=== PATIENT | female | born 1940 | race Caucasian/White ===

== ENCOUNTER 2017-07-28 09:44 | Inpatient (IN) | payer MEDICARE ==
[~2017-07-28] VITALS: Ht 157.5 cm; Wt 83.1 kg
[~2017-07-28 09:44] MED LIST: AMLO5TAB4 PO; CELE100C PO; CEPH-264 PO; CYCL-331 PO; SIMV20TA3 PO; WARF3TAB54 PO
--- NOTE | 2017-07-28 10:31 | RAD ---
Examination: 3 views of the left wrist and left elbow History: History of fall Comparison: None available Findings: The alignment of the carpal bones grossly appears unremarkable. Examination limited due to osseous demineralization. Moderate joint space loss identified in the first metacarpal joint likely secondary to degeneration. Calcification identified in the region of the triangular fibrocartilage likely chondrocalcinosis. Cystic changes of the triquetrum identified. The alignment of the elbow joint grossly appears unremarkable. There is minimal step-off of the radius head identified likely nondisplaced fracture of the radius head with joint effusion identified in the elbow joint with elevation of the anterior fat pad. Impression: 1. Nondisplaced fracture radial head. 2. Elbow joint effusion. 3. Chondrocalcinosis triangular fibrocartilage. 4. Moderate degenerative changes first metacarpal joint.
[2017-07-28] MEDS: BACITRACIN ZINC TOPICAL OINT PACKET. TP SCH (10:36)
--- NOTE | 2017-07-28 10:42 | RAD ---
Examination: CT of the chest abdomen pelvis without contrast History: History of fall, left flank pain per of comparison: None available Technique: Axial CT images of the chest abdomen pelvis were performed without contrast. Coronal and sagittal reformats are performed PQRS Compliance Statement: One or more of the following individualized dose reduction techniques were utilized for this examination: 1. Automated exposure control 2. Adjustment of the mA and/or kV according to patient size 3. Use of iterative reconstruction technique Findings: Moderately enlarged left lobe of the thyroid gland with multiple hypodense nodules identified in the left lobe of the thyroid gland with the largest measuring 3.1 cm. The central airways are patent. The heart size grossly appears unremarkable. Mitral valve calcifications. Coronary artery calcifications identified. No evidence of pericardial effusion. Small hiatal hernia. Minimal left lung base atelectasis or no evidence of pleural effusion or pneumothorax. There is minimal displaced fracture of the lateral left sixth rib, nondisplaced fracture of the anterolateral left seventh, eighth ribs. The evaluation of the solid organs of the abdomen is limited due to lack of IV contrast. The visualized noncontrasted liver, spleen, adrenals grossly appears unremarkable. The gallbladder is not identified. Stomach is mildly distended. The visualized pancreas grossly appears unremarkable. The small bowel is nondilated. Feces and gas noted in the colon. No significant free fluid identified in the pelvis. Few sigmoid colon diverticulosis. No evidence of hydronephrosis. There is an exophytic density identified in the right kidney measuring 1.4 cm in the superior pole of the right kidney and measuring 3 Hounsfield units could be a cyst or cystic lesion. There is a 2 cm cystic density identified in the inferior right kidney could be a cyst or cystic lesion. Mild aortic atherosclerosis. Urinary bladder is mildly distended. Moderate degenerative changes identified in the visualized thoracolumbar spine. Impression: 1. Mild displaced fracture of the lateral left sixth rib. Nondisplaced fractures of the anterolateral left seventh, eighth ribs. 2. Coronary artery calcifications. 3. Multinodular appearance of the left lobe of thyroid gland with the largest nodule measuring 3 cm. Follow-up nonemergent ultrasound thyroid can be considered. 4. Sigmoid colon diverticulosis. 5. Right renal cysts or cystic lesions.
--- NOTE | 2017-07-28 10:47 | PHYS DOC ---
Past History Past Medical History: High Cholesterol, Hypertension Past Surgical History: Appendectomy, Cholecystectomy, Hysterectomy, Knee Replacement, Other Additional Past Surgical Histo: multiple surgeries on her knee with knee replacement, upper right limb wris Smoking: Non-smoker Alcohol Use: None Drug Use: None Adult General Chief Complaint Chief Complaint: MECHANICAL FALL HPI HPI Patient is a pleasant 76-year-old female with a history of hypertension, hyperlipidemia and multiple orthopedic surgeries in the past who presents with a sudden fall at home. Patient lives in a [place] rise facility apartment complex by herself she has a history of falls from standing today while walking through her kitchen actually caught her foot on the threshold of the floor falling forward onto her knees risks and left flank. Her main complaint right now is left flank pain over the lower rib cage and at the elbow and wrist. This pain is dull and achy worse with direct pressure over the rib cage and with breathing. Patient denies any abdominal pain, chest pain, focal neurologic deficits before or after the fall. She was able to crawl on the ground across to the phone to call EMS for transfer to the ER. She denies any deformity to her wrists bilaterally do not some tingling. Patient is oriented to physical therapy for chronic leg shortening secondary to multiple surgeries on the right leg. Patient notes that her knees although uncomfortable did not sustain any significant injury the bruising on her legs is from crawling on the ground. She is on 0.5 mg of by mouth Coumadin daily that she's been taking for 27 years second to her upper quadrant with state following surgeries. She denies any change in medications, denies any head or neck trauma or pain. Patient's only complaint is abdominal pain on the left flank without shortness of breath. Review of Systems Review of Systems Constitutional: Denies fever or chills [] Eyes: Denies change in visual acuity, redness, or eye pain [] HENT: Denies nasal congestion or sore throat [] Respiratory: Denies cough or shortness of breath [] Cardiovascular: No additional information not addressed in HPI [] GI: Denies abdominal pain, nausea, vomiting, bloody stools or diarrhea [] : Denies dysuria or hematuria [] Musculoskeletal: Denies back pain or her main complaint is left wrist pain and left elbow pain and left lower rib pain Integument: Denies rash or skin lesions she has multiple areas of contusions and bruises in various states of healing and a large skin tear over the right elbow Neurologic: Denies headache, focal weakness or sensory changes [] Current Medications Current Medications Current Medications Medications (Trade) Dose Ordered Sig/Angel Start Time Stop Time Status Last Admin Dose Admin Bacitracin 1 pkt DAILY 07/28/17 10:45 07/28/17 10:36 1 PKT Allergies Allergies Allergies Coded Allergies Type Severity Reaction Last Updated Verified No Known Drug Allergies 11/02/15 No Physical Exam Physical Exam Vital signs recorded on the chart patient noted to be hypertensive otherwise normal. Constitutional: Well developed, well nourished, no acute distress, non-toxic appearance patient resting quietly and comfortably on the cot after receiving IV Ativan prior to arrival. HENT: Normocephalic, atraumatic, bilateral external ears normal, oropharynx moist, no oral exudates, nose normal. [] Eyes: PERRLA, EOMI, conjunctiva normal, no discharge. [] Neck: Normal range of motion, no tenderness, supple, no stridor. [] Cardiovascular:Heart rate regular rhythm, no murmur [] Lungs & Thorax: Bilateral breath sounds clear to auscultation [] Abdomen: Bowel sounds normal, patient has tenderness to palpation of the left lower ribs and the flank with no obvious Barber Palumbo sign or soft tissue swelling to the abdominal wall. She has a well-healed scar over the mid abdomen no evidence of distention, guarding rebound or organomegaly. Skin: Warm, dry, no erythema, no rash. She has multiple areas of bruising in her lower and upper limbs. They're in various states of healing but there is no obvious signs of laceration. Patient is a very large area of skin tear over the lateral aspect of the right forearm measuring 12 cm x 2 cm in length and width no active bleeding is noted patient's wound is uncovered with bacitracin ointment and a nonadherent gauze. Patient has no tenderness in the elbow joint itself with full range of motion. Back: No tenderness, Extremities: He has significant decreased range of motion in the right leg which is chronic for her given her prior surgeries. Patient has a large 3 cm circular contusion to both patellas bilaterally with no evidence of pain with axial loading no bony tenderness to palpation over the distal femur laterally. Patient has marked tenderness to palpation over the radial head on the left and tenderness to palpation over the distal ulna and distal radius with no obvious deformity or soft tissue swelling. Patient has brisk capillary refill +2 in the distal actually on the left and right with great pulses at the radial and ulnar arteries. Neurologic: Alert and oriented X 3, normal motor function, normal sensory function, no focal deficits noted. [] Psychologic: Affect normal, judgement normal, mood normal. [] Current Patient Data Vital Signs Vital Signs Date Time Temp Pulse Resp B/P (MAP) Pulse Ox O2 Delivery O2 Flow Rate FiO2 07/28/17 09:54 98.7 93 16 96 Room Air EKG EKG [] Radiology/Procedures Radiology/Procedures [] [place] [address] IMAGING REPORT Signed PATIENT: JANETT MCCANN ACCOUNT: [id number] : 1940 LOCATION: ER AGE: 76 SEX: F EXAM STATUS: REG ER ORD. PHYSICIAN: NATY MARIN MD REASON: flank injury PROCEDURE: CT CHEST ABDOMEN PELVIS WO Examination: CT of the chest abdomen pelvis without contrast History: History of fall, left flank pain per of comparison: None available Technique: Axial CT images of the chest abdomen pelvis were performed without contrast. Coronal and sagittal reformats are performed PQRS Compliance Statement: One or more of the following individualized dose reduction techniques were utilized for this examination: 1. Automated exposure control 2. Adjustment of the mA and/or kV according to patient size 3. Use of iterative reconstruction technique Findings: Moderately enlarged left lobe of the thyroid gland with multiple hypodense nodules identified in the left lobe of the thyroid gland with the largest measuring 3.1 cm. The central airways are patent. The heart size grossly appears unremarkable. Mitral valve calcifications. Coronary artery calcifications identified. No evidence of pericardial effusion. Small hiatal hernia. Minimal left lung base atelectasis or no evidence of pleural effusion or pneumothorax. There is minimal displaced fracture of the lateral left sixth rib, nondisplaced fracture of the anterolateral left seventh, eighth ribs. The evaluation of the solid organs of the abdomen is limited due to lack of IV contrast. The visualized noncontrasted liver, spleen, adrenals grossly appears unremarkable. The gallbladder is not identified. Stomach is mildly distended. The visualized pancreas grossly appears unremarkable. The small bowel is nondilated. Feces and gas noted in the colon. No significant free fluid identified in the pelvis. Few sigmoid colon diverticulosis. No evidence of hydronephrosis. There is an exophytic density identified in the right kidney measuring 1.4 cm in the superior pole of the right kidney and measuring 3 Hounsfield units could be a cyst or cystic lesion. There is a 2 cm cystic density identified in the inferior right kidney could be a cyst or cystic lesion. Mild aortic atherosclerosis. Urinary bladder is mildly distended. Moderate degenerative changes identified in the visualized thoracolumbar spine. Impression: 1. Mild displaced fracture of the lateral left sixth rib. Nondisplaced fractures of the anterolateral left seventh, eighth ribs. 2. Coronary artery calcifications. 3. Multinodular appearance of the left lobe of thyroid gland with the largest nodule measuring 3 cm. Follow-up nonemergent ultrasound thyroid can be considered. 4. Sigmoid colon diverticulosis. 5. Right renal cysts or cystic lesions. DICTATED AND SIGNED BY: BRAYAN WELCH MD DATE: 07/28/171029 CC: NATY MARIN MD; PCP,NO ~ [place] [id number] IMAGING REPORT Signed PATIENT: JANETT MCCANN ACCOUNT: [id number] : 1940 LOCATION: ER AGE: 76 SEX: F EXAM [id number] STATUS: REG ER ORD. PHYSICIAN: NATY MARIN MD REASON: fall PROCEDURE: ELBOW LEFT 3V; WRIST 3V LEFT Examination: 3 views of the left wrist and left elbow History: History of fall Comparison: None available Findings: The alignment of the carpal bones grossly appears unremarkable. Examination limited due to osseous demineralization. Moderate joint space loss identified in the first metacarpal joint likely secondary to degeneration. Calcification identified in the region of the triangular fibrocartilage likely chondrocalcinosis. Cystic changes of the triquetrum identified. The alignment of the elbow joint grossly appears unremarkable. There is minimal step-off of the radius head identified likely nondisplaced fracture of the radius head with joint effusion identified in the elbow joint with elevation of the anterior fat pad. Impression: 1. Nondisplaced fracture radial head. 2. Elbow joint effusion. 3. Chondrocalcinosis triangular fibrocartilage. 4. Moderate degenerative changes first metacarpal joint. DICTATED AND SIGNED BY: BRAYAN WELCH MD DATE: 07/28/17 1025 CC: NATY MARIN MD; PCP,KATHERINE ~ Course & Med Decision Making Course & Med Decision Making Pertinent Labs and Imaging studies reviewed. (See chart for details) Patient's CT abdomen and pelvis demonstrates multiple lower rib fractures on the left without evidence of spleen injury. Patient also suffered from a left radial head fracture. Given patient's debility and the fact she lives on her own I will admit patient to the hospital for pain management and very close follow-up with her primary care doctor along with developing a long-term treatment plan for continued weakness associated with her prior surgeries. This point patient's pain is well-controlled she is having an IV placed she will have a PT/INR drawn and tested for abnormal thinness. Ordnance Engineer note: change consultant Dr. Mejia Ordnance Engineer called at of the service Consult called back at Discussed the case I presented and they agreed with admission. Time of acceptance [] Dragon Disclaimer Dragon Disclaimer This chart was dictated in whole or in part using Voice Recognition software in a busy, high-work load, and often noisy Emergency Department environment. It may contain unintended and wholly unrecognized errors or omissions. Departure Departure: Referrals: PCP,KATHERINE (PCP) NATY MARIN MD Jul 28, 2017 10:47
[2017-07-28] MEDS ORDERED: MORPHINE SULFATE 2 MG/ML DISP.SYRIN. IV ONE (11:15)
[2017-07-28] MEDS ORDERED: ONDANSETRON PF 4 MG/2 ML VIAL. IV PRN (11:15)
[2017-07-28] MEDS ORDERED: 0.9 % SODIUM CHLORIDE 10 ML DISP.SYRIN. IV PRN (11:15)
[2017-07-28 11:50] LABS: BASO % 0 % (0-3); EOS # 0.1 x10^3/uL (0.0-0.7); EOS % 1 % (0-3); HEMATOCRIT 38.5 % (36.0-47.0); HEMOGLOBIN 12.6 g/dL (12.0-15.5); LYMPH # 1.3 x10^3/uL (1.0-4.8); LYMPH % 12 % (24-48); MEAN CORPUSCULAR HEMOGLOBIN 30 pg (25-35); MEAN CORPUSCULAR HGB CONC 33 g/dL (31-37); MEAN CORPUSCULAR VOLUME 91 fL (79-100); MONO # 0.9 x10^3/uL (0.0-1.1); MONO % 8 % (0-9); NEUT # 8.5 x10^3uL (1.8-7.7); NEUT % 79 % (31-73); PLATELET COUNT 251 x10^3/uL (140-400); RED BLOOD COUNT 4.23 x10^6/uL (3.50-5.40); RED CELL DISTRIBUTION WIDTH 14.6 % (11.5-14.5); WHITE BLOOD COUNT 10.8 x10^3/uL (4.0-11.0)
[2017-07-28 11:52] LABS: CALCIUM 8.3 mg/dL (8.5-10.1); CREATININE 1.2 mg/dL (0.6-1.0); GFR 43.6; POTASSIUM 3.9 mmol/L (3.5-5.1)
[2017-07-28] MEDS ORDERED: MORPHINE SULFATE 2 MG/ML DISP.SYRIN. IV PRN (13:45)
--- NOTE | 2017-07-28 14:40 | NUR ---
The patient, JANETT MCCANN, 76 y/o, F admitted by ALEX SANCHEZ MD, was given written information regarding hospital policies, unit procedures and contact persons. Patient admitted to room 125 from the ED and arrived at approx. 1430 via EMS. Valuables were checked and left in room with patient. Vital signs assessed and patient oriented to the room.
[2017-07-28] MEDS: IV NORMAL SALINE 1,000ML 1,000 ML IV SCH ×2 (15:02→22:04)
[2017-07-28 15:03] VITALS: BP 221/76
--- NOTE | 2017-07-28 15:56 | EKG ---
[address] [address] Test Date: 2017-07-28 Test Time: 09:49:43 Pat Name: JANETT MCCANN Department: Room: 125 A Gender: F Network Announcer: : 1940 Requested By: NATY MARIN Order Number: [id number] Reading MD: Blayne Farias Measurements Intervals [place] Rate: 99 P: 4 WA: 160 QRS: -3 QRSD: 82 T: 22 QT: 340 QTc: 442 Interpretive Statements SINUS RHYTHM INFERIOR INFARCT Electronically Signed On 08-04-2017 8:16:41 CDT by Blayne Farias
[2017-07-28 16:10] VITALS: BP 145/74
[2017-07-28] MEDS ORDERED: HYDR12.58 PO (17:38)
[2017-07-28] MEDS ORDERED: ACET-704 PO (17:38)
[2017-07-28] MEDS ORDERED: WARF1TAB7 PO (17:38)
[2017-07-28] MEDS ORDERED: MULT-650 PO (17:38)
[2017-07-28] MEDS ORDERED: ASCO10002 PO (17:38)
[2017-07-28] MEDS ORDERED: NITR50CA PO (17:38)
[2017-07-28] MEDS ORDERED: OMEP20TA63 PO (17:38)
[2017-07-28] MEDS ORDERED: CELE-20 PO (17:38)
[2017-07-28] MEDS ORDERED: VALS320T9 PO (17:38)
[2017-07-28 18:36] VITALS: BP 137/88
[2017-07-28 19:39] LABS: ALBUMIN 3.1 g/dL (3.4-5.0); CREATININE 1.2 mg/dL (0.6-1.0); GFR 43.6; POTASSIUM 4.2 mmol/L (3.5-5.1); TOTAL BILIRUBIN 0.4 mg/dL (0.2-1.0); TOTAL PROTEIN 6.3 g/dL (6.4-8.2)
[2017-07-28] MEDS: oxyCODONE IR 5 MG TABLET PO PRN (20:29)
[2017-07-28] MEDS: SIMVASTATIN 20 MG TABLET PO SCH (20:29)
[2017-07-28 21:00] VITALS: BP 178/72
[2017-07-28] MEDS: MORPHINE SULFATE 2 MG/ML DISP.SYRIN. IV PRN (22:03)
[2017-07-28 22:21] VITALS: BP 160/74
[2017-07-29] VITALS (10 sets, daily range): BP systolic 163–192; BP diastolic 67–101
[2017-07-29] MEDS: MORPHINE SULFATE 2 MG/ML DISP.SYRIN. IV PRN ×6 (02:05→22:00)
[2017-07-29] MEDS: hydrALAZINE 20 MG/ML VIAL. IV PRN ×3 (05:53→20:03)
--- NOTE | 2017-07-29 06:05 | NUR ---
NURSING: PT UP FREQUENTLY TO URINATE THROUGH NOC. PT C/O INCREASED PAIN WHEN PERFORMING ADL'S SUCH TOILETING, ESPECIALLY AT LEFT UPPER RIBS AREA. PT RECEIVED PRN MORPHINE INDICATED AND REPOSITIONED IN BED FOR MAXIMUM COMFORT WITH PILLOW PLACED TO ABDOMEN FOR SPLINTING. BP SIGNIFICANTLY ELEVATED THIS AM AT 197/77, HR 85 BPM. PT GIVEN PRN HYDRALAZINE, WILL MONITOR FOR EFFECTIVENESS.
[2017-07-29 06:09] LABS: HEMATOCRIT 36.4 % (36.0-47.0); HEMOGLOBIN 12.2 g/dL (12.0-15.5); RED BLOOD COUNT 4.05 x10^6/uL (3.50-5.40); RED CELL DISTRIBUTION WIDTH 14.5 % (11.5-14.5); WHITE BLOOD COUNT 8.1 x10^3/uL (4.0-11.0)
[2017-07-29 06:26] LABS: ALBUMIN 2.9 g/dL (3.4-5.0); ALBUMIN/GLOBULIN RATIO 0.9 (1.0-1.7); CREATININE 1.2 mg/dL (0.6-1.0); GFR 43.6; POTASSIUM 4.3 mmol/L (3.5-5.1); TOTAL BILIRUBIN 0.7 mg/dL (0.2-1.0); TOTAL PROTEIN 6.1 g/dL (6.4-8.2)
[2017-07-29] MEDS: hydroCHLOROthiazide 12.5 MG CAPSULE PO SCH (08:49)
[2017-07-29] MEDS: MULTIVITAMIN with MINERAL TABLET. PO SCH (08:49)
[2017-07-29] MEDS: ASCORBIC ACID 500 MG TABLET PO SCH (08:49)
[2017-07-29] MEDS: PANTOPRAZOLE 40 MG TABLET. PO SCH (08:50)
[2017-07-29] MEDS: NITROFURANTOIN MONOHYD/M-CRYST 100 MG CAPSULE. PO SCH (08:51)
[2017-07-29] MEDS: LOSARTAN 50 MG TABLET. PO SCH (08:51)
[2017-07-29] MEDS: NYSTATIN TOPICAL POWDER 30GM BOTTLE. TP SCH ×2 (08:52→20:04)
[2017-07-29] MEDS ORDERED: METOPROLOL TART IMMED RELEASE 25 MG TABLET PO ONE (13:00)
[2017-07-29] MEDS ORDERED: METOPROLOL SUCC 24HR ER 25 MG TAB.ER.24H. PO ONE (13:00)
[2017-07-29] MEDS: LIDOCAINE (700MG/PATCH) PATCH. TD SCH (14:31)
--- NOTE | 2017-07-29 15:49 | RAD ---
CT of the head without contrast, 07/29/2017: History: Fall, patient anticoagulated There is mild cerebral atrophy. The ventricles are within normal limits in size. There is no shift of the midline structures. There is no evidence of acute intracranial hemorrhage or mass affect. Minimal deep white matter lucencies are noted compatible with chronic ischemic change. IMPRESSION: No acute intracranial abnormality is detected. PQRS Compliance Statement: One or more of the following individualized dose reduction techniques were utilized for this examination: 1. Automated exposure control 2. Adjustment of the mA and/or kV according to patient size 3. Use of iterative reconstruction technique
[2017-07-29] MEDS: BACITRACIN ZINC TOPICAL OINT PACKET. TP SCH (15:53)
--- NOTE | 2017-07-29 16:17 | NUR ---
Wound Care Wound care consult for large skin tears on R elbow. Hiwot RN in middle of picturing and measuring wound upon arrival of [facility]. Steri-strips placed over skin tears to secure. Recommended dressing: xeroform, coccyx foam and medigrip to secure dressing, change every 3 days. Discussed POC with ROS Mi and patient. Will continue to follow for possible changes in wound.
--- NOTE | 2017-07-29 16:25 | NUR ---
Nursing Note: Pt noted to have elevated blood pressures this shift. Hydralazine administered x1 with increase in BP noted after approx. 1 hr. Pt reported feeling light-headed, dizzy, and diaphoretic. Dr. Mejia notified and 1x dose of Metoprolol 25 mg ordered and administered. Pt reported feeling better following Metoprolol dose and lower BP noted and reported to Dr. Mejia.
--- NOTE | 2017-07-29 16:30 | NUR ---
Nursing Note: During transfer to wheelchair, pt hit her right elbow on metal corner of the wall. New skin tear noted above previous skin tear on right elbow. New skin tear measured, photographed, documented, and discussed with public address announcer. New dressing applied to new and old skin tears on right elbow. Continue to monitor.
--- NOTE | 2017-07-29 16:40 | HP ---
ADMIT DATE: 07/29/2017 HISTORY OF PRESENT ILLNESS: The patient is a 76-year-old female patient, who presented to the Emergency Room yesterday with a sudden fall at home. The patient lives [facility] [place] herself. She apparently tripped and fell from standing while walking to her kitchen as her foot was caught in threshold of the floor, falling forward onto her knees, breast, and left flank. Her main complaint was pain in her left flank area, the lower rib cage as well as her left elbow on rest. The pain is dull, aching, worse with direct pressure over the ribcage and also taking a deep breath and moving. She denied any abdominal pain. Denied any dizziness, lightheadedness. Denied any palpitation. Denied any loss of consciousness. She was apparently able to crawl on the ground across to the phone to call EMS for transfer to the Emergency Room. She denied any deformity to her wrist bilaterally. She has been getting physical therapy for chronic leg shortening secondary to multiple surgeries to her right leg. She did sustain multiple bruises on both knee joints. She is on Coumadin daily as she has been taking it for the last 27 years secondary to her multiple deep vein thrombosis. She was evaluated in the Emergency Room and imaging studies showed that she has nondisplaced fracture of the radial head, elbow joint effusion, chondrocalcinosis, triangular fibrocartilage, moderate degenerative changes first metacarpal joint. She did have also CT scan of the chest, abdomen and pelvis, which show that the patient has moderately enlarged left lobe of the thyroid gland with multiple hypodense nodules identified in the left lobe of the thyroid gland with the largest measuring 3.1 cm. Central airways are patent. The heart size grossly appears unremarkable mitral valve calcification. She has also coronary artery calcification identified. No evidence of pericardial effusion. She did have a small hiatal hernia. She has minimal left lung base atelectasis, but no evidence of pleural effusion or pneumothorax. There is minimal displaced fracture of the lateral left sixth rib and nondisplaced fracture of the anterolateral left seventh and eighth ribs. The evaluation of the solid organs of the abdomen is limited due to lack of IV contrast. The visualized noncontrasted liver, spleen, adrenals grossly appears unremarkable. Gallbladder is not identified. Stomach is mildly distended. The visualized pancreas grossly appears unremarkable. Small bowel is nondilated. Feces and gas noted in the colon. No significant free fluid identified in the pelvis, few sigmoid colon diverticulosis. The patient, however, has no evidence of hydronephrosis. There is an exophytic density identified in the right kidney measuring 1.4 cm in the upper pole of the right kidney and measuring 3 Hounsfield units, could be cystic or cystic lesion. There is a 2 cm cystic density identified in the inferior right kidney. It could be a cyst or a cystic lesion. She has mild aortic atherosclerosis. Her urinary bladder is mildly distended. She has moderate degenerative changes identified in the visualized thoracolumbar spine. The patient was admitted for pain management and to start the process of physical and occupational therapy. PAST MEDICAL HISTORY: Significant for hypertension, severe osteoarthritis, osteoporosis as well as multiple deep vein thrombosis for which she is on lifelong anticoagulation. PAST SURGICAL HISTORY: Significant for bilateral cataract extraction, tonsillectomy hemithyroidectomy. She has total abdominal hysterectomy and bilateral salpingo-oophorectomy, three knee surgeries, appendectomy, right wrist fracture, status post open reduction and internal fixation. ALLERGIES: She is allergic to FOSAMAX. MEDICATIONS: She is currently on following medications: She is on Tylenol with Codeine 1 tablet 3 times a day, ascorbic acid 1000 mg once a day, Celebrex 200 mg twice a day, hydrochlorothiazide 12.5 mg once a day, multivitamin with mineral 1 tablet once a day, nitrofurantoin macrocrystal 50 mg once a day, omeprazole for Prilosec 40 mg once a day, simvastatin 20 mg once a day at bedtime, valsartan 320 mg once a day and warfarin 1 mg alternating with 0.5 mg daily. REVIEW OF SYSTEMS: The patient denied any blurring of vision. She did have cataract extraction, but denied any glaucoma or macular degeneration. Denied any earache, tinnitus, or sensorineural deafness. Denied any nosebleeds, stuffy nose, or postnasal drip. Denied any sore throat, sore tongue, toothache, hoarseness of voice or difficulty swallowing. Denied any nausea, vomiting, diarrhea, or constipation. She denied any hematemesis, melena, or hematochezia. Denied any dysuria, frequency, or hematuria. Denied any chest pain before the fall. Denied any orthopnea, paroxysmal nocturnal dyspnea. Denied any cough, phlegm, or hemoptysis. Denied any chills, rigors, or fever. Denied any dizziness, lightheadedness, or vertigo. PHYSICAL EXAMINATION: GENERAL: On arrival to the Emergency Room, she was clearly in pain, slightly pale, but no jaundice, cyanosis, or thyromegaly. No jugular venous distension. No lower limb edema. VITAL SIGNS: Her heart rate was 93, blood pressure was 165/71, temperature was 98.7, respiratory rate was 16 and oxygen saturation was 99% on room air. HEAD, EYES, EARS, NOSE, AND THROAT: Showed normocephalic, atraumatic. NECK: Supple. HEART: Showed normal first and second heart sounds with no gallop, rub, or murmur. CHEST: Clear to auscultation. No crepitation or rhonchi. ABDOMEN: Distended, soft, nontender. No guarding or rigidity. No organomegaly. All hernial orifices intact. Bowel sounds normal. NEUROLOGIC: She was awake, alert, responding appropriately. All cranial nerves intact. EXTREMITIES: She moves her extremities without difficulty. She has multiple bruises on both anterior aspects of both knee joints. She has also skin tear on the right elbow. LABORATORY DATA: Showed that her white cell count was 10,800, hemoglobin 12.6, hematocrit 38.5, MCV 91, and platelet count 251,000 with normal manual differential. Her chemistry showed a serum sodium 143, potassium 3.9, chloride 110, bicarbonate 22, anion gap of 11, BUN 19, creatinine 1.2. Estimated GFR was 43.6 mL per minute. Her glucose was 131, calcium was 8.3. Her total bilirubin, AST, ALT, alkaline phosphatase were normal. Total protein was 6.3, albumin 3.1. Her prothrombin time was 20.8, INR of 2.1, and aPTT was 35. ASSESSMENT AND PLAN: In summary, this is a 76-year-old female patient with past medical history significant for hypertension, hyperlipidemia and multiple orthopedic surgeries as well as deep vein thrombosis for which she is on Coumadin, who apparently fell sustaining left 6th, 7th, and 8th rib fracture as well as nondisplaced fracture of the left radial head and elbow effusion, who was admitted for pain management and to continue with all her other medications and to start the process of physical and occupational therapy. ALEX SANCHEZ MD DR: Randy JOB#: [id number] / [id number]
[2017-07-29] MEDS: ACETAMINOPHEN/CODEINE 300/30MG TABLET PO PRN (20:03)
[2017-07-29] MEDS: SIMVASTATIN 20 MG TABLET PO SCH (20:03)
[2017-07-29] MEDS ORDERED: BACITRACIN ZINC TOPICAL OINT PACKET. TP PRN (20:15)
[2017-07-29] MEDS: ONDANSETRON PF 4 MG/2 ML VIAL. IV PRN (20:25)
[2017-07-30] MEDS: MORPHINE SULFATE 2 MG/ML DISP.SYRIN. IV PRN ×2 (02:46→06:27)
--- NOTE | 2017-07-30 04:44 | PN ---
DATE: 07/29/2017 SUBJECTIVE: The patient is resting slightly propped up in bed, in no apparent distress. She continued to complain of significant pain in her left side of the chest and left flank area. The pain is worse with movement and taking a deep breath. She was seen by the physical therapist and was able to walk with a walker. Her blood pressure was high this afternoon, although we did add hydralazine. PHYSICAL EXAMINATION: GENERAL: When I examined her, she was slightly pale, but no jaundice, cyanosis, or thyromegaly. No jugular venous distention. No limb edema. VITAL SIGNS: Her heart rate was 103, blood pressure was 184/67, temperature was 97.7, respiratory rate was 18 and oxygen saturation was 97% on room air. HEAD, EYES, EARS, NOSE AND THROAT: Showed normocephalic, atraumatic. NECK: Supple. HEART: Showed normal first and second heart sounds with no gallop, rub or murmur. CHEST: Clear to auscultation. No crepitation or rhonchi. ABDOMEN: Distended, soft and nontender. No guarding or rigidity. No organomegaly. Hernial orifices intact. Bowel sounds normal. NEUROLOGIC: She was awake, alert and responding appropriately. Cranial nerves intact. She moves all extremities without difficulty, although obviously has severe pain in her knees and also left elbow. Her intake and output were incompletely recorded. LABORATORY DATA: Her lab work this morning showed a white cell count of 8100, hemoglobin 12.2, hematocrit 36.4, MCV 90 and platelet count 235,000. Her prothrombin time was 24. INR of 2.4. Her chemistry showed a serum sodium 139, potassium 4.3, chloride 107, bicarbonate 24, anion gap of 8, BUN 16, creatinine 1.2, estimated GFR was 43 mL per minute. Her glucose 141 and calcium was 8. Total bilirubin, AST, ALT, alkaline phosphatase were normal. Total protein was 6.1 and albumin was 2.9. ASSESSMENT: This is a 76-year-old female patient who apparently fell at home sustaining multiple rib fractures and also nondisplaced fracture of the radial head. She has elbow joint effusion, chondrocalcinosis triangular fibrocartilage and moderate degenerative changes of the 1st metacarpal joint. The patient was admitted for pain management. PLAN: My plan is to increase her morphine to 4 mg every 3 hours and add Lidoderm patches, to apply 2 patches to the left side of the chest to assist with pain management. I will check her labs again tomorrow including her TSH and hemoglobin A1c as she has a partial thyroidectomy before and her fasting blood sugar was high this morning. ALEX SANCHEZ MD DR: PITA/maru JOB#: [id number] / [id number]
[2017-07-30] MEDS: hydrALAZINE 20 MG/ML VIAL. IV PRN (05:57)
[2017-07-30 06:00] LABS: BASO % 0 % (0-3); EOS % 0 % (0-3); HEMOGLOBIN 13.2 g/dL (12.0-15.5); LYMPH # 1.6 x10^3/uL (1.0-4.8); LYMPH % 15 % (24-48); MEAN CORPUSCULAR HEMOGLOBIN 31 pg (25-35); MEAN CORPUSCULAR HGB CONC 34 g/dL (31-37); MEAN CORPUSCULAR VOLUME 90 fL (79-100); MONO % 9 % (0-9); NEUT # 8.2 x10^3uL (1.8-7.7); NEUT % 76 % (31-73); PLATELET COUNT 287 x10^3/uL (140-400); RED BLOOD COUNT 4.33 x10^6/uL (3.50-5.40); RED CELL DISTRIBUTION WIDTH 14.6 % (11.5-14.5); WHITE BLOOD COUNT 10.9 x10^3/uL (4.0-11.0)
[2017-07-30 06:04] VITALS: BP 194/76
[2017-07-30 06:22] LABS: ALBUMIN 3.1 g/dL (3.4-5.0); ALBUMIN/GLOBULIN RATIO 0.9 (1.0-1.7); CALCIUM 8.2 mg/dL (8.5-10.1); CREATININE 1.2 mg/dL (0.6-1.0); GFR 43.6; POTASSIUM 4.1 mmol/L (3.5-5.1); TOTAL BILIRUBIN 0.9 mg/dL (0.2-1.0); TOTAL PROTEIN 6.7 g/dL (6.4-8.2)
[2017-07-30 06:31] VITALS: BP 168/78
--- NOTE | 2017-07-30 06:34 | NUR ---
NURSING: PT CONTINUES TO HAVE ELEVATED BP'S THIS SHIFT. DENIES DIZZINESS OR LIGHTHEADEDNESS. GIVEN PRN HYDRALAZINE X2, NOTED LOWERED BP AFTER EACH ADMIN. PT SLEPT BETTER LAST NOC. PT ABLE TO GET UP FROM BED WITH LESS DIFFICULTY THIS AM. STILL C/O SIGNIFICANT PAIN TO LEFT RIBS, GIVEN PRN MORPHINE INDICATED. WILL MONITOR.
[2017-07-30] MEDS: HYDROmorphone PF 2 MG/ML VIAL IV PRN ×5 (08:22→23:07)
[2017-07-30] MEDS: MULTIVITAMIN with MINERAL TABLET. PO SCH (08:58)
[2017-07-30] MEDS: NITROFURANTOIN MONOHYD/M-CRYST 100 MG CAPSULE. PO SCH (08:58)
[2017-07-30] MEDS: LIDOCAINE (700MG/PATCH) PATCH. TD SCH (08:58)
[2017-07-30] MEDS: PANTOPRAZOLE 40 MG TABLET. PO SCH (08:58)
[2017-07-30] MEDS: hydroCHLOROthiazide 12.5 MG CAPSULE PO SCH (08:58)
[2017-07-30] MEDS: ASCORBIC ACID 500 MG TABLET PO SCH (08:59)
[2017-07-30] MEDS: NYSTATIN TOPICAL POWDER 30GM BOTTLE. TP SCH ×2 (08:59→19:16)
[2017-07-30] MEDS: LOSARTAN 50 MG TABLET. PO SCH (08:59)
[2017-07-30 12:19] VITALS: BP 170/70
[2017-07-30 15:03] VITALS: BP 172/75
[2017-07-30 16:34] VITALS: BP 142/60
--- NOTE | 2017-07-30 17:27 | NUR ---
Nursing Note: During morning assessment, pt reported continued extreme pain to left ribs. Pt had received 4mg Morphine at 0627. Dr. Mejia called at 0807 and new orders to discontinue Morphine and start Dilaudid 2mg Q3 hrs. 2mg Dilaudid administered with slight decrease in pain noted. Elevated BPs noted this afternoon and reported to Dr. Mejia. Dilaudid administered for reported pain and decreased BP noted with decreased pain level. Metoprolol 25mg BID ordered by Dr. Mejia to start tonight. Continue to monitor.
[2017-07-30] MEDS: SIMVASTATIN 20 MG TABLET PO SCH (19:15)
[2017-07-30 19:40] VITALS: BP 151/68
[2017-07-30] MEDS: METOPROLOL TART IMMED RELEASE 25 MG TABLET PO SCH (20:03)
--- NOTE | 2017-07-30 22:30 | NUR ---
Patient is very confused, patient thinking that her neighbor was in to visit her, she thinks she is at home. Reoriented patient.
[2017-07-30] MEDS: ONDANSETRON PF 4 MG/2 ML VIAL. IV PRN (23:07)
--- NOTE | 2017-07-31 01:30 | NUR ---
Patient trying to get out of bed, doesn't know where she is at. Feels like she is confused because of "that medicine" Patient reoriented. Bed alarm set for safety.
[2017-07-31 06:17] VITALS: BP 174/76
[2017-07-31] MEDS: PANTOPRAZOLE 40 MG TABLET. PO SCH (08:22)
[2017-07-31] MEDS: LOSARTAN 50 MG TABLET. PO SCH (08:23)
[2017-07-31] MEDS: MULTIVITAMIN with MINERAL TABLET. PO SCH (08:23)
[2017-07-31] MEDS: ASCORBIC ACID 500 MG TABLET PO SCH (08:24)
[2017-07-31] MEDS: ACETAMINOPHEN/CODEINE 300/30MG TABLET PO PRN (08:24)
[2017-07-31] MEDS: NITROFURANTOIN MONOHYD/M-CRYST 100 MG CAPSULE. PO SCH (08:25)
[2017-07-31] MEDS: METOPROLOL TART IMMED RELEASE 25 MG TABLET PO SCH ×2 (08:25→20:11)
[2017-07-31] MEDS: hydroCHLOROthiazide 12.5 MG CAPSULE PO SCH (08:25)
[2017-07-31] MEDS: NYSTATIN TOPICAL POWDER 30GM BOTTLE. TP SCH ×2 (08:26→20:08)
[2017-07-31] MEDS: LIDOCAINE (700MG/PATCH) PATCH. TD SCH (08:26)
--- NOTE | 2017-07-31 09:21 | PN ---
DATE: 07/30/2017 SUBJECTIVE: The patient is resting slightly propped up in bed, clearly more comfortable than yesterday. She continued to have pain in her left side of the chest; however, she managed to get out of bed to the bedside commode, has managed to walk with physical therapy. Has had no more complaints of headaches. A CT scan of the head was unremarkable with no evidence of any intracranial bleed. PHYSICAL EXAMINATION: GENERAL: When I examined her, she looked well and was clearly in no apparent respiratory distress, pale, but no jaundice, cyanosis, or thyromegaly. No jugular venous distention. No lower limb edema. VITAL SIGNS: Her heart rate was 97, blood pressure 170/70, temperature was 98, respiratory rate was 20, and oxygen saturation was 94% on room air. HEAD, EYES, EARS, NOSE, AND THROAT: Normocephalic, atraumatic. NECK: Supple. HEART: Showed normal first and second heart sounds with no gallop, rub, or murmur. CHEST: Clear to auscultation. No crepitation or rhonchi. ABDOMEN: Distended, soft, nontender. NEUROLOGIC: She is awake, alert, responding appropriately. Cranial nerves intact. She moves extremities without difficulty. She is mostly bed bound. Her intake was 1300, output was 2024. LABORATORY DATA: As of this morning, her white cell count was 10,900, hemoglobin 13, hematocrit 39, MCV 90, and platelet count 287,000. Her chemistry showed a serum sodium 139, potassium 4.1, chloride 104, bicarbonate 25, anion gap of 10, BUN 16, creatinine 1.2, estimated GFR was 43 mL per minute. Her glucose 117. Calcium was 8.1. Total bilirubin, AST, ALT, alkaline phosphatase were normal. Total protein was 6.7, albumin was 3.1. Her TSH is less than 0.007. Her prothrombin time as of yesterday was 24. INR of 2.4. ASSESSMENT: 1. Fall with sustaining multiple left-sided rib fractures, also nondisplaced fracture of the radial head, elbow effusion, chondrocalcinosis. Other medical problems include: 2. Hypertension. 3. Severe osteoarthritis. 4. Osteoporosis. 5. Multiple deep vein thrombosis, which she is on lifelong anticoagulation. 6. Undetected TSH, likely indicating hyperthyroidism. PLAN: My plan is to continue with hydromorphone, continue with Lidoderm patches. I will check her T3, T4, free T4 and decide on further management accordingly. ALEX SANCHEZ MD DR: PITA/maru JOB#: [id number] / [id number]
[2017-07-31 10:44] VITALS: BP 171/78
[2017-07-31 13:17] LABS: BACTERIA,URINE 0 /HPF (0-FEW); BILIRUBIN,URINE NEG (NEG); CLARITY,URINE CLEAR; COLOR,URINE YELLOW; GLUCOSE,URINE NEG (NEG); NITRITE,URINE NEG (NEG); RBC,URINE 0 /HPF (0-2); SQUAMOUS EPITHELIAL CELL,UR OCC /LPF; UROBILINOGEN,URINE 0.2 mg/dL (0.2 mg/dL); WBC,URINE 0 /HPF (0-4)
[2017-07-31] MEDS: ONDANSETRON PF 4 MG/2 ML VIAL. IV PRN ×2 (13:42→19:59)
[2017-07-31 14:09] LABS: THYROXINE 10.4 ug/dL (4.5-12.0)
[2017-07-31] MEDS: POTASSIUM CL 20MEQ D5-0.9%NACL 1,000 ML IV SCH (14:55)
[2017-07-31 14:59] LABS: HEMATOCRIT 39.3 % (36.0-47.0); RED BLOOD COUNT 4.4 x10^6/uL (3.50-5.40); RED CELL DISTRIBUTION WIDTH 14.3 % (11.5-14.5); WHITE BLOOD COUNT 12.8 x10^3/uL (4.0-11.0)
[2017-07-31 15:12] VITALS: BP 181/81
[2017-07-31 15:15] LABS: ALBUMIN 3.1 g/dL (3.4-5.0); ALBUMIN/GLOBULIN RATIO 0.9 (1.0-1.7); CALCIUM 8.5 mg/dL (8.5-10.1); CREATININE 1.6 mg/dL (0.6-1.0); GFR 31.3; POTASSIUM 3.8 mmol/L (3.5-5.1); TOTAL BILIRUBIN 1.1 mg/dL (0.2-1.0); TOTAL PROTEIN 6.7 g/dL (6.4-8.2)
[2017-07-31] MEDS: HYDROmorphone PF 2 MG/ML VIAL IV PRN (20:00)
[2017-07-31] MEDS: SIMVASTATIN 20 MG TABLET PO SCH (20:08)
[2017-07-31 20:19] VITALS: BP 169/82
[2017-07-31 22:44] VITALS: BP 164/73
--- NOTE | 2017-08-01 02:38 | PN ---
DATE: 07/31/2017 SUBJECTIVE: The patient is resting, slightly propped up in bed, clearly confused, has had multiple episodes of nausea, vomiting continued to complain of pain, has not kept anything in her stomach today according to nursing staff. She was restless and screaming out last night. The nursing staff has been in and out throughout the night. PHYSICAL EXAMINATION: GENERAL: When I saw her this afternoon, she was resting slightly propped up in bed, in no apparent respiratory distress. She was slightly pale. No jaundice, cyanosis or thyromegaly. No jugular venous distention. No limb edema. VITAL SIGNS: Her heart rate was 78, blood pressure was 171/78, temperature was 98, respiratory rate 20, and oxygen saturation was 95% on room air. HEAD, EYES, EARS, NOSE, AND THROAT: Showed normocephalic, atraumatic. NECK: Supple. HEART: Showed normal first and second heart sounds with no gallop, rub, or murmur. CHEST: Clear to auscultation. No crepitation or rhonchi. ABDOMEN: Distended, soft, nontender. NEUROLOGIC: She is awake, alert, somewhat confused. All her cranial nerves intact. She moves extremities without difficulty. Her intake over the last 24 hours was 710, output was 600. LABORATORY DATA: Her lab work this morning showed that her free T4 was high at 1.67; however, her total T3 and total T4 were normal. TSH was undetectable that is less than 0.007. PLAN: My plan is to start her on IV fluids in the form of D5 half normal with 20 mEq of potassium chloride. We will continue with a clear liquid diet. I will increase her metoprolol to 50 mg twice a day. She continued to be hypertensive and she is obviously thyrotoxic. ALEX SANCHEZ MD DR: PITA/maru JOB#: [id number] / [id number]
[2017-08-01] MEDS: POTASSIUM CL 20MEQ D5-0.9%NACL 1,000 ML IV SCH (03:27)
[2017-08-01] MEDS: HYDROmorphone PF 2 MG/ML VIAL IV PRN ×3 (04:07→14:30)
[2017-08-01 04:11] VITALS: BP 188/83
[2017-08-01 05:00] VITALS: BP 138/63
[2017-08-01] MEDS: PANTOPRAZOLE 40 MG TABLET. PO SCH (07:43)
[2017-08-01] MEDS: ONDANSETRON PF 4 MG/2 ML VIAL. IV PRN ×2 (07:43→14:30)
[2017-08-01] MEDS: NITROFURANTOIN MONOHYD/M-CRYST 100 MG CAPSULE. PO SCH (09:00)
[2017-08-01] MEDS: METOPROLOL TART IMMED RELEASE 25 MG TABLET PO SCH ×2 (10:05→20:04)
[2017-08-01] MEDS: LOSARTAN 50 MG TABLET. PO SCH (10:06)
[2017-08-01] MEDS: NYSTATIN TOPICAL POWDER 30GM BOTTLE. TP SCH ×2 (10:07→20:04)
[2017-08-01] MEDS: hydroCHLOROthiazide 12.5 MG CAPSULE PO SCH (10:07)
[2017-08-01] MEDS: ASCORBIC ACID 500 MG TABLET PO SCH (10:08)
[2017-08-01] MEDS: LIDOCAINE (700MG/PATCH) PATCH. TD SCH (10:08)
[2017-08-01] MEDS: MULTIVITAMIN with MINERAL TABLET. PO SCH (10:09)
[2017-08-01 11:15] VITALS: BP 166/76
[2017-08-01] MEDS: oxyCODONE IR 5 MG TABLET PO PRN ×2 (12:15→20:03)
[2017-08-01 14:34] VITALS: BP 162/69
[2017-08-01] MEDS: IV NORMAL SALINE 1,000ML 1,000 ML IV SCH (17:20)
[2017-08-01 19:38] VITALS: BP 179/95
[2017-08-01] MEDS: SIMVASTATIN 20 MG TABLET PO SCH (20:04)
[2017-08-01] MEDS: hydrALAZINE 20 MG/ML VIAL. IV PRN (20:04)
--- NOTE | 2017-08-01 20:08 | RAD ---
PQRS Compliance Statement: One or more of the following individualized dose reduction techniques were utilized for this examination: 1. Automated exposure control 2. Adjustment of the mA and/or kV according to patient size 3. Use of iterative reconstruction technique CT ABDOMEN PELVIS WO Clinical Indication: abd pain.left flank pain with worsening kidney function Comparison: CT chest abdomen and pelvis without contrast, 4 days ago. Technique: Helical CT imaging of the abdomen and pelvis is performed without IV or oral contrast. Findings: Evaluation of solid organs and bowel is limited without oral and IV contrast, decreasing sensitivity for detection of pathology. There is increased consolidation in the bilateral lower lobes, worse on the right. Coronary artery disease. Mitral annular calcification. Cardiac size normal. Gallbladder surgically absent. Liver, spleen, pancreas, adrenal glands, and abdominal aorta caliber are stable. No hydronephrosis. Small right extrarenal pelvis. Right renal cyst. Small exophytic density at the upper pole of the right kidney, image 45. Appearance is stable. Limited sensitivity for detection of renal mass without IV contrast. Stomach unremarkable. No dilated small bowel. Scattered stool throughout the colon. There is no colon wall thickening. Appendix is not seen, no secondary signs of appendicitis. No abdominal adenopathy or free fluid. Urinary bladder is decompressed. Uterus surgically absent. No pelvic free fluid. There is mild left convexity lumbar scoliosis and lumbar degenerative spondylosis. IMPRESSION: 1. Increased consolidations in the bilateral lower lobes, right greater than left. Considerations include atelectasis, aspiration, or pneumonia. 2. No acute abdominal or pelvic abnormality. 3. Moderate stool throughout the colon, correlate for constipation. Electronically signed by: Art Sandoval MD (08/01/2017 8:05 PM) [facility]
--- NOTE | 2017-08-01 20:19 | NUR ---
Nursing note: Spoke to Dr. Mejia regarding CT results, new orders given. Instructed Pt to use IS as much as possible so pt does not develop pneumonia.
[2017-08-01] MEDS ORDERED: WARFARIN 5 MG TABLET. PO ONE (20:30)
[2017-08-01] MEDS ORDERED: BISACODYL 10 MG SUPP.RECT PR PRN (20:30)
[2017-08-01] MEDS: POLYETHYLENE GLYCOL 3350 17 GM PACKET. PO SCH (20:51)
[2017-08-01] MEDS: DOCUSATE SODIUM 100 MG CAPSULE PO SCH (20:51)
[2017-08-01] MEDS: ACETAMINOPHEN/CODEINE 300/30MG TABLET PO PRN (22:53)
[2017-08-01 23:05] VITALS: BP 154/62
[2017-08-02 05:12] VITALS: BP 199/83
[2017-08-02] MEDS: hydrALAZINE 20 MG/ML VIAL. IV PRN ×2 (05:13→16:46)
[2017-08-02 06:22] VITALS: BP 153/75
[2017-08-02] MEDS: oxyCODONE IR 5 MG TABLET PO PRN ×2 (06:26→20:17)
[2017-08-02] MEDS: ONDANSETRON PF 4 MG/2 ML VIAL. IV PRN (06:38)
[2017-08-02 07:07] LABS: ALBUMIN 2.8 g/dL (3.4-5.0); ALBUMIN/GLOBULIN RATIO 0.8 (1.0-1.7); CALCIUM 8.4 mg/dL (8.5-10.1); CREATININE 1.3 mg/dL (0.6-1.0); GFR 39.7; TOTAL PROTEIN 6.5 g/dL (6.4-8.2)
[2017-08-02] MEDS: POLYETHYLENE GLYCOL 3350 17 GM PACKET. PO SCH (09:23)
[2017-08-02] MEDS: PANTOPRAZOLE 40 MG TABLET. PO SCH (09:25)
[2017-08-02] MEDS: LIDOCAINE (700MG/PATCH) PATCH. TD SCH (09:25)
[2017-08-02] MEDS: ASCORBIC ACID 500 MG TABLET PO SCH (09:26)
[2017-08-02] MEDS: METOPROLOL TART IMMED RELEASE 25 MG TABLET PO SCH ×2 (09:26→20:17)
[2017-08-02] MEDS: NITROFURANTOIN MONOHYD/M-CRYST 100 MG CAPSULE. PO SCH (09:26)
[2017-08-02] MEDS: DOCUSATE SODIUM 100 MG CAPSULE PO SCH ×2 (09:26→20:16)
[2017-08-02] MEDS: MULTIVITAMIN with MINERAL TABLET. PO SCH (09:26)
[2017-08-02] MEDS: NYSTATIN TOPICAL POWDER 30GM BOTTLE. TP SCH ×2 (09:27→20:18)
[2017-08-02 09:55] LABS: BASO % 0 % (0-3); EOS % 0 % (0-3); HEMATOCRIT 39.4 % (36.0-47.0); HEMOGLOBIN 13.1 g/dL (12.0-15.5); LYMPH # 1.2 x10^3/uL (1.0-4.8); LYMPH % 11 % (24-48); MEAN CORPUSCULAR HEMOGLOBIN 30 pg (25-35); MEAN CORPUSCULAR HGB CONC 33 g/dL (31-37); MEAN CORPUSCULAR VOLUME 90 fL (79-100); MONO # 0.8 x10^3/uL (0.0-1.1); MONO % 8 % (0-9); NEUT % 82 % (31-73); PLATELET COUNT 285 x10^3/uL (140-400); RED BLOOD COUNT 4.39 x10^6/uL (3.50-5.40); RED CELL DISTRIBUTION WIDTH 13.9 % (11.5-14.5); WHITE BLOOD COUNT 11.1 x10^3/uL (4.0-11.0)
[2017-08-02 10:32] VITALS: BP 173/81
--- NOTE | 2017-08-02 11:56 | NUR ---
Pharmacy Warfarin Dosing Note S:Pharmacy consulted to assist with anticoagulation therapy started 08/02/17 with target INR: 2 -3 O:JANETT MCCANN is a 76 year old F with DVT/PE LABS: Last INR: 1.8 Last HGB: 13.1 Last HCT: 39.4 Last PLT: 285 Last dose of 5 mg given on 08/01/17 at 1600 Previous Regimen: 1MG DAILY HOME DOSE Vitamin K given: N Drug Interaction Changes: Same Interacting Drug Ongoing Drug Interactions: A:INR Below desired Range. Target Range for this patient is: 2 -3 P: Warfarin dose: 1 mg Today at 1600 Bridge Therapy: None Next INR due 08/03/17 @ 0600 Pharmacy anticoagulation service will continue to follow. CHRISTIANO PARIKH [facility], 08/02/17 [id number]
[2017-08-02] MEDS: IV NORMAL SALINE 1,000ML 1,000 ML IV SCH ×2 (12:45→20:16)
--- NOTE | 2017-08-02 12:47 | PN ---
DATE: 08/01/2017 SUBJECTIVE: The patient is resting, slightly propped up in bed, no apparent distress on questioning her; however, she continued to complain of pain in the left side of her chest, left flank area. Reviewing her labs showed that for some reason, her BUN and creatinine have dramatically risen, therefore, with a BUN is risen from 16 to 33 and creatinine has risen from 1.2 to 1.6. She is on losartan/hydrochlorothiazide that I discontinued. PHYSICAL EXAMINATION: GENERAL: When I examined her, she was resting slightly propped up in bed, in no apparent distress, slightly pale, but no jaundice, cyanosis, or thyromegaly. No jugular venous distension. No limb edema. VITAL SIGNS: Her heart rate was 70, blood pressure was 162/69, temperature was 97.8, respiratory rate 20, and oxygen saturation was 92% on room air. HEAD, EYES, EARS, NOSE AND THROAT: Showed normocephalic, atraumatic. NECK: Supple. HEART: Showed normal first and second heart sounds with no gallop, rub or murmur. CHEST: Clear to auscultation. No crepitation or rhonchi. ABDOMEN: Distended, soft, nontender, with tenderness mostly in the left flank area. No guarding or rigidity. No organomegaly. Hernial orifices intact. Bowel sounds normal. NEUROLOGIC: She was awake, alert, responding appropriately. Cranial nerves intact. She is able to ambulate with a walker. Unfortunately, she is still having severe pain when changing positions. Her intake over the last 24 hours was 1358, output was 1947. LABORATORY DATA: Her lab work this morning showed a white cell count 12,800, hemoglobin 13, hematocrit 39, MCV 89 and platelet count of 276,000. Her prothrombin time was 24. INR of 2.4. Her chemistry this morning showed a serum sodium 136, potassium 3.8, chloride 100, bicarbonate 24, anion gap of 12, BUN 33, creatinine 1.6, estimated GFR was 31 mL per minute. Her glucose was 117, calcium was 8.5. Total bilirubin is 1.1. AST, ALT, alkaline phosphatase were normal. Total protein was 6.7, albumin was 3.1. Her lipase was 64. Her TSH was extremely low at ____. Her free T4 was high at 1.67. However, her total T4 and total T3 were normal at 10.4 and 96. ASSESSMENT: 1. Fall, sustaining multiple left-sided rib fractures and also nondisplaced fracture of the radial head, elbow effusion, chondrocalcinosis. 2. Acute on chronic kidney injury, her BUN and creatinine has risen from 16 and 1.2 to 33 and 1.6, for which I discontinued her hydrochlorothiazide and losartan. 3. Hypertension. 4. Severe osteoarthritis. 5. Osteoporosis. 6. Multiple deep vein thrombosis, which she is on lifelong anticoagulation. 7. Hyperthyroidism as her TSH is undetectable at ___. Total T3 were normal; however, free T4 was high at 1.67. PLAN: My plan given that she has increased pain, I will arrange for her to have a CT scan of the chest, abdomen and pelvis. I have discontinued her losartan and potassium. I will discontinue her IV fluid that has potassium. However, I will continue with IV fluid without any potassium given the worsening kidney function. If the blood pressure continued to be high, we can add amlodipine as it is not nephrotoxic. I will repeat all her lab works tomorrow. She will probably need to be admitted to swing bed, although her pain was severe over the weekend that requires intravenous pain. ALEX SANCHEZ MD DR: PITA/maru JOB#: [id number] / [id number]
[2017-08-02 15:59] VITALS: BP 194/83
[2017-08-02] MEDS ORDERED: WARFARIN 1 MG TABLET. PO ONE (16:00)
--- NOTE | 2017-08-02 16:56 | RAD ---
Thyroid ultrasound, 08/02/2017: History: Suppressed TSH The right lobe of the thyroid gland has reportedly been surgically removed. The left lobe of the gland is enlarged measuring 6.6 x 3.8 x 4.3 cm. It demonstrates a heterogeneous echo pattern. Correlation with the CT study of 07/28/2017 suggests that its inferior extent is not completely included on these ultrasound images. The mass seen in the lower pole of the left lobe of the gland on that CT study was not visualized sonographically. No discrete thyroid mass was identified on today's exam. IMPRESSION: 1. 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 2. Enlarged, heterogeneous left lobe with substernal extension. 3. The patient's known left lower pole thyroid mass was not visualized sonographically, presumably due to its caudal location.
[2017-08-02 17:39] VITALS: BP 180/75
[2017-08-02 19:19] VITALS: BP 170/75
--- NOTE | 2017-08-02 19:34 | PDOC ---
Exam Niko Demential Exam: Niko Note: Please also refer to the separate dictated note~for this date of service dictated separately.~Patient seen individually. Discussed the patient with Nursing staff reviewed the chart.~Reviewed interim history and current functioning. Reviewed vital signs,~Labs/ Radiology~and current medications noted below. Continue current treatment with the changes noted in the dictated addendum note Assessment: Vital Signs: Vital Signs Date Time Temp Pulse Resp B/P (MAP) Pulse Ox O2 Delivery O2 Flow Rate FiO2 08/02/17 19:19 97.4 89 17 170/75 (106) 96 Room Air I&O Intake and Output 08/03/17 07:00 Intake Total 840 ml Output Total 835 ml Balance 5 ml Intake Oral 840 ml Output Urine Total 835 ml Labs: Laboratory Tests Test 08/02/17 06:32 08/02/17 09:45 Sodium Level 136 mmol/L (136-145) Potassium Level 4.0 mmol/L (3.5-5.1) Chloride Level 104 mmol/L (98-107) Carbon Dioxide Level 20 mmol/L (21-32) L Anion Gap 12 (6-14) Blood Urea Nitrogen 34 mg/dL (7-20) H Creatinine 1.3 mg/dL (0.6-1.0) H Estimated GFR (Cockcroft-Gault) 39.7 BUN/Creatinine Ratio 26 (6-20) H Glucose Level 108 mg/dL (70-99) H Calcium Level 8.4 mg/dL (8.5-10.1) L Total Bilirubin 1.0 mg/dL (0.2-1.0) Aspartate Amino Transferase (AST) 24 U/L (15-37) Alanine Aminotransferase (ALT) 21 U/L (14-59) Alkaline Phosphatase 58 U/L (46-116) Total Protein 6.5 g/dL (6.4-8.2) Albumin 2.8 g/dL (3.4-5.0) L Albumin/Globulin Ratio 0.8 (1.0-1.7) L White Blood Count 11.1 x10^3/uL (4.0-11.0) H Red Blood Count 4.39 x10^6/uL (3.50-5.40) Hemoglobin 13.1 g/dL (12.0-15.5) Hematocrit 39.4 % (36.0-47.0) Mean Corpuscular Volume 90 fL (79-100) Mean Corpuscular Hemoglobin 30 pg (25-35) Mean Corpuscular Hemoglobin Concent 33 g/dL (31-37) Red Cell Distribution Width 13.9 % (11.5-14.5) Platelet Count 285 x10^3/uL (140-400) Neutrophils (%) (Auto) 82 % (31-73) H Lymphocytes (%) (Auto) 11 % (24-48) L Monocytes (%) (Auto) 8 % (0-9) Eosinophils (%) (Auto) 0 % (0-3) Basophils (%) (Auto) 0 % (0-3) Neutrophils # (Auto) 9.0 x10^3uL (1.8-7.7) H Lymphocytes # (Auto) 1.2 x10^3/uL (1.0-4.8) Monocytes # (Auto) 0.8 x10^3/uL (0.0-1.1) Eosinophils # (Auto) 0.0 x10^3/uL (0.0-0.7) Basophils # (Auto) 0.0 x10^3/uL (0.0-0.2) Prothrombin Time 18.6 SEC (9.4-11.4) H Prothrombin Time INR 1.8 (0.9-1.1) H PTT 39 SEC (23-33) H Current Medications: Meds: Current Medications Bacitracin 1 pkt DAILY TP Last administered on 07/29/17 15:53; Start at 10:45; Stop 07/29/17 at 20:17; Status DC Morphine Sulfate (Morphine 2mg Syringe) 2 mg 1X ONCE IV Last administered on 07/28/17t 11:55; Start 07/28/17 at 11:15; Stop 07/28/17 at 11:16; Status DC Sodium Chloride (Normal Saline Flush) 10 ml QSHIFT PRN IV AFTER MEDS AND BLOOD DRAWS; Start 07/28/17 at 11:15; Stop 07/29/17 at 14:14; Status DC Ondansetron HCl (Zofran) 4 mg PRN Q4HRS PRN IV NAUSEA/VOMITING; Start at 11:15; Stop 07/29/17 at 11:14; Status DC Sodium Chloride 1,000 ml @ 75 mls/hr [id number] IV Last administered on 22:04; Start 07/28/17 at 11:15; Stop 07/29/17 at 11:14; Status DC Morphine Sulfate (Morphine 2mg Syringe) 2 mg PRN Q2HR PRN IV PAIN Last administered on 07/28/17 13:42; Start 07/28/17 at 13:45; Stop 07/28/17 at 18 :39; Status DC Acetaminophen/ Codeine Phosphate (Tylenol #3) 1 tab TID PRN PRN PO PAIN Last administered on 08/01/17 22:53; Start 07/28/17 at 18:30 Simvastatin (Zocor) 20 mg QHS PO Last administered on 08/01/17 20:04; Start 07/28/17 at 21:00 Ascorbic Acid (Vitamin C) 1,000 mg DAILY PO Last administered on 08/02/17 09: 26; Start 07/29/17 at 09:00 Hydrochlorothiazide (Microzide) 12.5 mg DAILY PO Last administered on 10:07; Start 07/29/17 at 09:00; Stop 08/01/17 at 16:46; Status DC Multivitamins/ Calcium (Thera-M Plus) 1 tab DAILY PO Last administered on 08/02 09:26; Start 07/29/17 at 09:00 Nitrofurantoin Macrocrystals (Macrobid) 100 mg DAILY PO Last administered on 09:26; Start 07/29/17 at 09:00 Pantoprazole Sodium (Protonix) 40 mg DAILY PO Last administered on 08/02/17 09:25; Start 07/29/17 at 09:00 Losartan Potassium (Cozaar) 100 mg DAILY PO Last administered on 08/01/17 10: 06; Start 07/29/17 at 09:00; Stop 08/01/17 at 16:46; Status DC Hydralazine HCl (Apresoline) 10 mg PRN Q4HRS PRN IV ELEVATED BP, SEE COMMENTS Last administered on 08/02/17 16:46; Start 07/28/17 at 18:30 Oxycodone HCl (Roxicodone) 5 mg PRN Q4HRS PRN PO PAIN Last administered on 06:26; Start 07/28/17 at 18:30 Morphine Sulfate (Morphine 2mg Syringe) 2 mg PRN Q2HR PRN IV PAIN Last administered on 07/29/17 09:40; Start 07/28/17 at 21:45; Stop 07/29/17 at 14 :14; Status DC Nystatin (Nystop) 1 cherelle BID TP Last administered on 08/02/17 09:27; Start at 09:00 Metoprolol Succinate (Toprol Xl) 25 mg 1X ONCE PO ; Start 07/29/17 at 13:00; Stop 07/29/17 at 13:00; Status DC Metoprolol Tartrate (Lopressor) 25 mg 1X ONCE PO Last administered on 12:49; Start 07/29/17 at 13:00; Stop 07/29/17 at 13:01; Status DC Morphine Sulfate (Morphine 2mg Syringe) 4 mg PRN Q3HRS PRN IV PAIN Last administered on 07/30/17 06:27; Start 07/29/17 at 14:15; Stop 07/30/17 at 08 :08; Status DC Lidocaine (Lidoderm) 2 patch DAILY TD Last administered on 08/02/17 09:25; Start 07/29/17 at 14:30 Bacitracin 1 pkt PRN DAILY PRN TP skin tear; Start 07/29/17 at 20:15 Ondansetron HCl (Zofran) 4 mg PRN Q6HRS PRN IV NAUSEA/VOMITING Last administered on 08/02/17 06:38; Start 07/29/17 at 20:15 Hydromorphone HCl (Dilaudid) 2 mg PRN Q3HRS PRN IV PAIN Last administered on 14:30; Start 07/30/17 at 08:15 Metoprolol Tartrate (Lopressor) 25 mg BID PO Last administered on 07/31/17 08 :25; Start 07/30/17 at 21:00; Stop 07/31/17 at 14:43; Status DC Potassium Chloride/Dextrose/ Sod Cl 1,000 ml @ 75 mls/hr [id number] IV Last administered on 08/01/17 03:27; Start 07/31/17 at 15:00; Stop 08/01/17 at 16 :46; Status DC Metoprolol Tartrate (Lopressor) 50 mg BID PO Last administered on 08/02/17 09 :26; Start 07/31/17 at 21:00 Warfarin Sodium (Coumadin Per Physician) 1 each PRN DAILY PRN MC SEE COMMENTS; Start 08/01/17 at 10:45; Stop 08/02/17 at 11:49; Status DC Sodium Chloride 1,000 ml @ 75 mls/hr [id number] IV Last administered on 12:45; Start 08/01/17 at 17:00 Warfarin Sodium (Coumadin) 5 mg 1X ONCE PO Last administered on 08/01/17 20: 51; Start 08/01/17 at 20:30; Stop 08/01/17 at 20:41; Status DC Warfarin Sodium (Coumadin Per Pharmacy) 1 each PRN DAILY PRN MC SEE COMMENTS Last administered on 08/02/17 11:54; Start 08/01/17 at 20:30 Polyethylene Glycol (miraLAX) 17 gm DAILY PO Last administered on 08/02/17 09 :23; Start 08/01/17 at 20:30 Docusate Sodium (Colace) 100 mg BID PO Last administered on 08/02/17 09:26; Start 08/01/17 at 21:00 Bisacodyl (Dulcolax Supp) 10 mg PRN DAILY PRN [place] CONSTIPATION Last administered on 08/02/17 00:17; Start 08/01/17 at 20:30 Warfarin Sodium (Coumadin) 1 mg 1X WARF ONCE PO Last administered on 16:43; Start 08/02/17 at 16:00; Stop 08/02/17 at 16:01; Status DC Active Scripts Active Reported Prilosec Otc (Omeprazole Magnesium) 20 Mg Tablet.dr 2 Tab PO DAILY Centrum Silver Women Tablet (Multivits-Min/Iron/FA/Lutein) 1 Each Tablet 1 Each PO DAILY Vitamin C (Ascorbic Acid) 1,000 Mg Tablet 1,000 Mg PO DAILY Hydrochlorothiazide Tablet (Hydrochlorothiazide) 12.5 Mg Tablet 12.5 Mg PO DAILY LAST DOSE GIVEN: DATE: TIME: NEXT DOSE DUE: DATE: TIME: Tylenol With Codeine #3 Tablet (Acetaminophen With Codeine) 1 Each Tablet 1 Tab PO TID PRN PRN LAST DOSE GIVEN: DATE: TIME: NEXT DOSE DUE: DATE: TIME: Nitrofurantoin (Nitrofurantoin Macrocrystal) 50 Mg Capsule 50 Mg PO DAILY LAST DOSE GIVEN: DATE: TIME: NEXT DOSE DUE: DATE: TIME: Valsartan 320 Mg Tablet 320 Mg PO DAILY LAST DOSE GIVEN: DATE: TIME: NEXT DOSE DUE: DATE: TIME: Celecoxib 200 Mg Capsule 200 Mg PO BID LAST DOSE GIVEN: DATE: TIME: NEXT DOSE DUE: DATE: TIME: Warfarin Sodium 1 Mg Tablet 1 Mg PO DAILY LAST DOSE GIVEN: DATE: TIME: NEXT DOSE DUE: DATE: TIME: Simvastatin 20 Mg Tablet 1 Tab PO QHS LAST DOSE GIVEN: DATE: TIME: NEXT DOSE DUE: DATE: TIME: Diagnosis: Problems: (1) Major depressive disorder, recurrent episode (2) Radial head fracture (3) Fracture, ribs ERICA DAVENPORT MD Aug 02, 2017 19:34
[2017-08-02] MEDS: SIMVASTATIN 20 MG TABLET PO SCH (20:17)
--- NOTE | 2017-08-03 02:17 | PN ---
DATE: 08/02/2017 PROBLEMS: 1. Status post fall sustaining with left-sided rib fractures. 2. Nondisplaced fracture of the left radial head. 3. Elbow effusion. 4. Chronic pain. 5. Acute on chronic kidney injury. 6. Hypertension. 7. Osteoarthritis. 8. Osteoporosis. 9. Multiple deep vein thrombosis on lifelong anticoagulation. 10. Hyperthyroidism. The patient has suppressed TSH and multiple thyroid nodules. SUBJECTIVE: The patient did get up today and she was ambulated very slightly. She needs to have a posterior splint put on. Her Coumadin has been subtherapeutic. We are working on getting that up. She is constipated and we are working on that as well. Main issue has been pain management with these fractured ribs and atelectasis because of not taking deep breaths. OBJECTIVE: VITAL SIGNS: Blood pressure 153/75, pulse ox 98% on room air, pulse is 90, temperature 98.3. GENERAL: A 76-year-old who looks to be in mild pain. She has bruising over her nose. HEENT: Her throat was clear. NECK: Supple. LUNGS: With a few crackles in the bases. CARDIOVASCULAR: Regular rhythm and rate. ABDOMEN: Soft, nontender. EXTREMITIES: With swollen knees bilaterally and bruising. She also has bruising on left breast, considerable bruising on the left wrist and elbow with pain on pronation particularly. X-rays were reviewed. PLAN: We need to get a handle on her pain management, get rid of the IV Dilaudid and switch her to swing bed status as soon as possible and we are going to do the posterior splint today. STEVE DURAN DO DR: MARIA DE JESUS/maru JOB#: [id number] / [id number]
--- NOTE | 2017-08-03 04:29 | CONS ---
DATE OF CONSULTATION: 08/02/2017 PSYCHIATRIC CONSULTATION IDENTIFYING DATA: The patient is a 76-year-old female, referred by Dr. Mejia for evaluation of depression. The patient was seen individually, discussed with nursing staff, reviewed the chart. CHIEF COMPLAINT: "Yes, I am depressed, but I leave things to the lord. I have friends. I do lisa at [facility] where I have been living for 27 years. I have played games with the others at the apartment and work on puzzles. I do not want to be on any medications for depression. I will get better." HISTORY OF PRESENT ILLNESS: The patient is a 76-year-old female who presented to the Emergency Room with a sudden fall at home at [facility]. She lives in the apartment by herself, tripped on the floor. She denied any loss of consciousness. She called the EMS, went to the ER and then admitted on . She admits to being depressed with some insomnia, feeling hopeless, worthless, but no suicidal ideation. No psychotic symptoms. No clear symptoms of bipolar disorder. Cognitively, she is reasonably intact. PAST PSYCHIATRIC HISTORY: As above, but no past treatment has been done and the patient prefers not to be on any psychotropics, whatsoever. PAST MEDICAL HISTORY: Positive for hypertension, osteoarthritis, osteoporosis, multiple deep vein thrombosis on lifelong anticoagulation, aortic atherosclerosis. The patient was admitted for pain management over the weekend, she was quite confused, but her narcotics were reduced and confusion has improved. PAST SURGICAL HISTORY: Bilateral cataract extraction, tonsillectomy, hemithyroidectomy, total abdominal hysterectomy, bilateral salpingo-oophorectomy, 3 knee surgeries, appendectomy, right wrist fracture status post open reduction and internal fixation. ALLERGIES: FOSAMAX. CURRENT PSYCHOTROPICS: Negative. She was on Tylenol with Codeine at admission, Celebrex, hydrochlorothiazide, multivitamin, nitrofurantoin, Prilosec, Zocor, valsartan, warfarin. FAMILY HISTORY: Noncontributory. SOCIAL HISTORY: No alcohol or drug abuse. She is for 39 years. She lives in the apartment as noted above, used to work at [employer]. Her primary care physician is THUY Jennings. MENTAL STATUS EXAMINATION: The patient was lying in bed, seen individually. She is well oriented. Speech is coherent. Thought processes, goal directed. Mood is somewhat dysphoric, though she minimizes this. No psychotic symptoms, suicidal or homicidal ideation. Intellect average. Insight good. Judgment intact. She is quite clear on not wanting to be on any antidepressants. Attention span fair. Language function intact. LABORATORY DATA: Reviewed. IMPRESSION: Adjustment disorder with depressed mood and anxiety versus major depressive disorder, recurrent, mild to moderate. Rest of diagnoses as above. PLAN: I had a lengthy discussion with the patient about the option of using Lexapro 10 mg a day for her depression, but she is quite clear she prefers not to use any psychotropics. Does not want to be in psychotherapy at the [facility], either. She reiterated that she has psychosocial support, though on close questioning, this is rather limited, but the patient wants to persist with what she has, rather than doing anything different. She is cognitively well intact to make that decision for herself. If depressive symptoms worsen, she may need to be on the Lexapro as noted and I will defer this to her outpatient provider. Dr. Mejia, thank you for the opportunity to participate in your patient's care. We will follow with you. ERICA DAVENPORT MD DR: VANDANA/mrau JOB#: [id number] / [id number]
[2017-08-03 05:45] VITALS: BP 158/81
[2017-08-03 07:04] LABS: ALBUMIN 2.6 g/dL (3.4-5.0); ALBUMIN/GLOBULIN RATIO 0.7 (1.0-1.7); CALCIUM 8.3 mg/dL (8.5-10.1); CREATININE 1.1 mg/dL (0.6-1.0); GFR 48.2; MAGNESIUM 1.9 mg/dL (1.8-2.4); POTASSIUM 3.9 mmol/L (3.5-5.1); TOTAL BILIRUBIN 0.8 mg/dL (0.2-1.0); TOTAL PROTEIN 6.2 g/dL (6.4-8.2)
[2017-08-03 07:15] LABS: BASO % 0 % (0-3); EOS % 0 % (0-3); HEMATOCRIT 36.7 % (36.0-47.0); HEMOGLOBIN 12.4 g/dL (12.0-15.5); LYMPH % 10 % (24-48); MEAN CORPUSCULAR HEMOGLOBIN 30 pg (25-35); MEAN CORPUSCULAR HGB CONC 34 g/dL (31-37); MEAN CORPUSCULAR VOLUME 90 fL (79-100); MONO # 0.7 x10^3/uL (0.0-1.1); MONO % 7 % (0-9); NEUT # 8.5 x10^3uL (1.8-7.7); NEUT % 83 % (31-73); PLATELET COUNT 259 x10^3/uL (140-400); RED BLOOD COUNT 4.07 x10^6/uL (3.50-5.40); WHITE BLOOD COUNT 10.2 x10^3/uL (4.0-11.0)
[2017-08-03] MEDS: POLYETHYLENE GLYCOL 3350 17 GM PACKET. PO SCH (09:00)
[2017-08-03] MEDS: IV NORMAL SALINE 1,000ML 1,000 ML IV SCH ×2 (09:00→22:20)
[2017-08-03] MEDS: NYSTATIN TOPICAL POWDER 30GM BOTTLE. TP SCH ×2 (09:52→19:58)
[2017-08-03] MEDS: NITROFURANTOIN MONOHYD/M-CRYST 100 MG CAPSULE. PO SCH (09:52)
[2017-08-03] MEDS: ASCORBIC ACID 500 MG TABLET PO SCH (09:53)
[2017-08-03] MEDS: MULTIVITAMIN with MINERAL TABLET. PO SCH (09:53)
[2017-08-03] MEDS: METOPROLOL TART IMMED RELEASE 25 MG TABLET PO SCH ×2 (09:53→19:59)
[2017-08-03] MEDS: DOCUSATE SODIUM 100 MG CAPSULE PO SCH ×2 (09:53→19:58)
[2017-08-03] MEDS: PANTOPRAZOLE 40 MG TABLET. PO SCH (09:54)
[2017-08-03] MEDS: LIDOCAINE (700MG/PATCH) PATCH. TD SCH (09:54)
[2017-08-03 10:52] VITALS: BP 199/82
[2017-08-03] MEDS: ONDANSETRON PF 4 MG/2 ML VIAL. IV PRN (11:45)
[2017-08-03] MEDS: oxyCODONE IR 5 MG TABLET PO PRN ×2 (11:45→19:59)
[2017-08-03] MEDS: hydrALAZINE 20 MG/ML VIAL. IV PRN (11:46)
--- NOTE | 2017-08-03 12:10 | NUR ---
Pharmacy Warfarin Dosing Note S:Pharmacy consulted to assist with anticoagulation therapy started 08/01/17 with target INR: 2 -3 O:JANETT MCCANN is a 76 year old F with DVT/PE LABS: Last INR: 3.6 Last HGB: 12.4 Last HCT: 36.4 Last PLT: 259 Last dose of 1 mg given on 08/02/17 at 1600 Previous Regimen: 1MG HOME DOSE Vitamin K given: N Drug Interaction Changes: Same Interacting Drug Ongoing Drug Interactions: A:INR Above desired Range. Target Range for this patient is: 2 -3 P: Warfarin dose: Hold Today at 1600 Bridge Therapy: None Next INR due 08/04/17 @ 0600 Pharmacy anticoagulation service will continue to follow. CHRISTIANO PARIKH [facility], 08/03/17 1210
[2017-08-03 15:10] VITALS: BP 181/77
--- NOTE | 2017-08-03 18:42 | PDOC ---
Exam Niko Demential Exam: Niko Note: Please also refer to the separate dictated note~for this date of service dictated separately.~Patient seen individually. Discussed the patient with Nursing staff reviewed the chart.~Reviewed interim history and current functioning. Reviewed vital signs,~Labs/ Radiology~and current medications noted below. Continue current treatment with the changes noted in the dictated addendum note Assessment: Vital Signs: Vital Signs Date Time Temp Pulse Resp B/P (MAP) Pulse Ox O2 Delivery O2 Flow Rate FiO2 08/03/17 15:10 98.0 82 20 181/77 (111) 97 Room Air I&O Intake and Output 08/04/17 07:00 Intake Total 560 ml Output Total 800 ml Balance -240 ml Intake Oral 560 ml Output Urine Total 800 ml # Bowel Movements 2 Labs: Laboratory Tests Test 08/03/17 06:32 08/03/17 07:08 Sodium Level 138 mmol/L (136-145) Potassium Level 3.9 mmol/L (3.5-5.1) Chloride Level 105 mmol/L (98-107) Carbon Dioxide Level 21 mmol/L (21-32) Anion Gap 12 (6-14) Blood Urea Nitrogen 31 mg/dL (7-20) H Creatinine 1.1 mg/dL (0.6-1.0) H Estimated GFR (Cockcroft-Gault) 48.2 BUN/Creatinine Ratio 28 (6-20) H Glucose Level 82 mg/dL (70-99) Calcium Level 8.3 mg/dL (8.5-10.1) L Magnesium Level 1.9 mg/dL (1.8-2.4) Total Bilirubin 0.8 mg/dL (0.2-1.0) Aspartate Amino Transferase (AST) 20 U/L (15-37) Alanine Aminotransferase (ALT) 20 U/L (14-59) Alkaline Phosphatase 56 U/L (46-116) Total Protein 6.2 g/dL (6.4-8.2) L Albumin 2.6 g/dL (3.4-5.0) L Albumin/Globulin Ratio 0.7 (1.0-1.7) L White Blood Count 10.2 x10^3/uL (4.0-11.0) Red Blood Count 4.07 x10^6/uL (3.50-5.40) Hemoglobin 12.4 g/dL (12.0-15.5) Hematocrit 36.7 % (36.0-47.0) Mean Corpuscular Volume 90 fL (79-100) Mean Corpuscular Hemoglobin 30 pg (25-35) Mean Corpuscular Hemoglobin Concent 34 g/dL (31-37) Red Cell Distribution Width 14.0 % (11.5-14.5) Platelet Count 259 x10^3/uL (140-400) Neutrophils (%) (Auto) 83 % (31-73) H Lymphocytes (%) (Auto) 10 % (24-48) L Monocytes (%) (Auto) 7 % (0-9) Eosinophils (%) (Auto) 0 % (0-3) Basophils (%) (Auto) 0 % (0-3) Neutrophils # (Auto) 8.5 x10^3uL (1.8-7.7) H Lymphocytes # (Auto) 1.0 x10^3/uL (1.0-4.8) Monocytes # (Auto) 0.7 x10^3/uL (0.0-1.1) Eosinophils # (Auto) 0.0 x10^3/uL (0.0-0.7) Basophils # (Auto) 0.0 x10^3/uL (0.0-0.2) Prothrombin Time 35.7 SEC (9.4-11.4) H Prothrombin Time INR 3.6 (0.9-1.1) H Current Medications: Meds: Current Medications Bacitracin 1 pkt DAILY TP Last administered on 07/29/17 15:53; Start at 10:45; Stop 07/29/17 at 20:17; Status DC Morphine Sulfate (Morphine 2mg Syringe) 2 mg 1X ONCE IV Last administered on 07/28/17 11:55; Start 07/28/17 at 11:15; Stop 07/28/17 at 11:16; Status DC Sodium Chloride (Normal Saline Flush) 10 ml QSHIFT PRN IV AFTER MEDS AND BLOOD DRAWS; Start 07/28/17 at 11:15; Stop 07/29/17 at 14:14; Status DC Ondansetron HCl (Zofran) 4 mg PRN Q4HRS PRN IV NAUSEA/VOMITING; Start at 11:15; Stop 07/29/17 at 11:14; Status DC Sodium Chloride 1,000 ml @ 75 mls/hr [id number] IV Last administered on 22:04; Start 07/28/17 at 11:15; Stop 07/29/17 at 11:14; Status DC Morphine Sulfate (Morphine 2mg Syringe) 2 mg PRN Q2HR PRN IV PAIN Last administered on 07/28/17 13:42; Start 07/28/17 at 13:45; Stop 07/28/17 at 18 :39; Status DC Acetaminophen/ Codeine Phosphate (Tylenol #3) 1 tab TID PRN PRN PO PAIN Last administered on 08/01/17 22:53; Start 07/28/17 at 18:30 Simvastatin (Zocor) 20 mg QHS PO Last administered on 08/02/17 20:17; Start 07/28/17 at 21:00 Ascorbic Acid (Vitamin C) 1,000 mg DAILY PO Last administered on 08/03/17 09: 53; Start 07/29/17 at 09:00 Hydrochlorothiazide (Microzide) 12.5 mg DAILY PO Last administered on 10:07; Start 07/29/17 at 09:00; Stop 08/01/17 at 16:46; Status DC Multivitamins/ Calcium (Thera-M Plus) 1 tab DAILY PO Last administered on 08/03 09:53; Start 07/29/17 at 09:00 Nitrofurantoin Macrocrystals (Macrobid) 100 mg DAILY PO Last administered on 09:52; Start 07/29/17 at 09:00; Stop 08/03/17 at 10:26; Status DC Pantoprazole Sodium (Protonix) 40 mg DAILY PO Last administered on 08/03/17 09:54; Start 07/29/17 at 09:00 Losartan Potassium (Cozaar) 100 mg DAILY PO Last administered on 08/01/17 10: 06; Start 07/29/17 at 09:00; Stop 08/01/17 at 16:46; Status DC Hydralazine HCl (Apresoline) 10 mg PRN Q4HRS PRN IV ELEVATED BP, SEE COMMENTS Last administered on 08/03/17 11:46; Start 07/28/17 at 18:30 Oxycodone HCl (Roxicodone) 5 mg PRN Q4HRS PRN PO PAIN Last administered on 11:45; Start 07/28/17 at 18:30 Morphine Sulfate (Morphine 2mg Syringe) 2 mg PRN Q2HR PRN IV PAIN Last administered on 07/29/17 09:40; Start 07/28/17 at 21:45; Stop 07/29/17 at 14 :14; Status DC Nystatin (Nystop) 1 cherelle BID TP Last administered on 08/03/17 09:52; Start at 09:00 Metoprolol Succinate (Toprol Xl) 25 mg 1X ONCE PO ; Start 07/29/17 at 13:00; Stop 07/29/17 at 13:00; Status DC Metoprolol Tartrate (Lopressor) 25 mg 1X ONCE PO Last administered on 12:49; Start 07/29/17 at 13:00; Stop 07/29/17 at 13:01; Status DC Morphine Sulfate (Morphine 2mg Syringe) 4 mg PRN Q3HRS PRN IV PAIN Last administered on 07/30/17 06:27; Start 07/29/17 at 14:15; Stop 07/30/17 at 08 :08; Status DC Lidocaine (Lidoderm) 2 patch DAILY TD Last administered on 08/03/17 09:54; Start 07/29/17 at 14:30 Bacitracin 1 pkt PRN DAILY PRN TP skin tear; Start 07/29/17 at 20:15 Ondansetron HCl (Zofran) 4 mg PRN Q6HRS PRN IV NAUSEA/VOMITING Last administered on 08/03/17 11:45; Start 07/29/17 at 20:15 Hydromorphone HCl (Dilaudid) 2 mg PRN Q3HRS PRN IV PAIN Last administered on 14:30; Start 07/30/17 at 08:15 Metoprolol Tartrate (Lopressor) 25 mg BID PO Last administered on 07/31/17 08 :25; Start 07/30/17 at 21:00; Stop 07/31/17 at 14:43; Status DC Potassium Chloride/Dextrose/ Sod Cl 1,000 ml @ 75 mls/hr [id number] IV Last administered on 08/01/17 03:27; Start 07/31/17 at 15:00; Stop 08/01/17 at 16 :46; Status DC Metoprolol Tartrate (Lopressor) 50 mg BID PO Last administered on 08/03/17 09 :53; Start 07/31/17 at 21:00 Warfarin Sodium (Coumadin Per Physician) 1 each PRN DAILY PRN MC SEE COMMENTS; Start 08/01/17 at 10:45; Stop 08/02/17 at 11:49; Status DC Sodium Chloride 1,000 ml @ 75 mls/hr [id number] IV Last administered on 20:16; Start 08/01/17 at 17:00 Warfarin Sodium (Coumadin) 5 mg 1X ONCE PO Last administered on 08/01/17 20: 51; Start 08/01/17 at 20:30; Stop 08/01/17 at 20:41; Status DC Warfarin Sodium (Coumadin Per Pharmacy) 1 each PRN DAILY PRN MC SEE COMMENTS Last administered on 08/03/17 12:09; Start 08/01/17 at 20:30 Polyethylene Glycol (miraLAX) 17 gm DAILY PO Last administered on 08/02/17 09 :23; Start 08/01/17 at 20:30 Docusate Sodium (Colace) 100 mg BID PO Last administered on 08/03/17 09:53; Start 08/01/17 at 21:00 Bisacodyl (Dulcolax Supp) 10 mg PRN DAILY PRN [place] CONSTIPATION Last administered on 08/02/17 00:17; Start 08/01/17 at 20:30 Warfarin Sodium (Coumadin) 1 mg 1X WARF ONCE PO Last administered on 16:43; Start 08/02/17 at 16:00; Stop 08/02/17 at 16:01; Status DC Nitrofurantoin Macrocrystals (Macrobid) 100 mg QODAY PO ; Start 08/05/17 at 09: 00 Warfarin Sodium (Coumadin - No Dose Today) 1 each 1X WARF ONCE MC ; Start at 16:00; Stop 08/03/17 at 16:01; Status DC Active Scripts Active Reported Prilosec Otc (Omeprazole Magnesium) 20 Mg Tablet.dr 2 Tab PO DAILY Centrum Silver Women Tablet (Multivits-Min/Iron/FA/Lutein) 1 Each Tablet 1 Each PO DAILY Vitamin C (Ascorbic Acid) 1,000 Mg Tablet 1,000 Mg PO DAILY Hydrochlorothiazide Tablet (Hydrochlorothiazide) 12.5 Mg Tablet 12.5 Mg PO DAILY LAST DOSE GIVEN: DATE: TIME: NEXT DOSE DUE: DATE: TIME: Tylenol With Codeine #3 Tablet (Acetaminophen With Codeine) 1 Each Tablet 1 Tab PO TID PRN PRN LAST DOSE GIVEN: DATE: TIME: NEXT DOSE DUE: DATE: TIME: Nitrofurantoin (Nitrofurantoin Macrocrystal) 50 Mg Capsule 50 Mg PO DAILY LAST DOSE GIVEN: DATE: TIME: NEXT DOSE DUE: DATE: TIME: Valsartan 320 Mg Tablet 320 Mg PO DAILY LAST DOSE GIVEN: DATE: TIME: NEXT DOSE DUE: DATE: TIME: Celecoxib 200 Mg Capsule 200 Mg PO BID LAST DOSE GIVEN: DATE: TIME: NEXT DOSE DUE: DATE: TIME: Warfarin Sodium 1 Mg Tablet 1 Mg PO DAILY LAST DOSE GIVEN: DATE: TIME: NEXT DOSE DUE: DATE: TIME: Simvastatin 20 Mg Tablet 1 Tab PO QHS LAST DOSE GIVEN: DATE: TIME: NEXT DOSE DUE: DATE: TIME: Diagnosis: Problems: (1) Major depressive disorder, recurrent episode (2) Radial head fracture (3) Fracture, ribs ERICA DAVENPORT MD Aug 03, 2017 18:42
[2017-08-03] MEDS: SIMVASTATIN 20 MG TABLET PO SCH (19:59)
[2017-08-03 20:48] VITALS: BP 174/70
--- NOTE | 2017-08-04 00:20 | NUR ---
Pt changed to Swing bed. Pt staying to same room.
[2017-08-04] MEDS ORDERED: METO100T2 PO (00:37)
[2017-08-04] MEDS ORDERED: POLY17PO5 PO (00:37)
[2017-08-04] MEDS ORDERED: NITR100C62 PO (00:37)
[2017-08-04] MEDS ORDERED: NYST15CR TP (00:37)
[2017-08-04] MEDS ORDERED: LIDO700A39 TP (00:37)
[2017-08-04] MEDS ORDERED: PANT40TA3 PO (00:37)
[2017-08-04] MEDS ORDERED: ACET-704 PO (00:37)
[2017-08-04] MEDS ORDERED: ONDA4TAB10 PO (00:37)
[2017-08-04] MEDS ORDERED: DOCU-109 PO (00:37)
[2017-08-04] MEDS ORDERED: HYDR-2867 PO (00:37)
[2017-08-04] MEDS ORDERED: BISA10SU2 RC (00:37)
[2017-08-04] MEDS ORDERED: OXYC5TAB88 PO (00:37)
[2017-08-04] MEDS ORDERED: BACI1PAC TP (00:38)
--- NOTE | 2017-08-04 08:00 | NUR ---
wound care d/t to change patients dressing today, patient stated the dressing was changed early this morning, will f/u Monday 08/06 for reassessment of wound care.
--- NOTE | 2017-08-05 04:00 | PN ---
DATE: 08/03/2017 SUBJECTIVE: The patient was seen individually evening of 08/03/2017. Discussed with nursing staff, reviewed the chart. This note covers and elements not covered in my initial note of 08/03/2017. Overall, per nursing report, the patient remains somewhat withdrawn, depressed, gets tearful at times than she was during the individual visited me the evening of 08/03/2017. Nevertheless, she minimizes her depressive symptoms, states the good Lord will help her as will her friends and social support network. She clearly does not want to be on any antidepressants even at this stage. REVIEW OF SYSTEMS: No CV, , pulmonary, eye, ENT system symptoms on review. Reliability fair. MENTAL STATUS EXAM: Reasonably oriented. Speech coherent, tearful at times, but verbal open. No psychotic symptoms, suicidal or homicidal ideation. Mood is dysphoric, anxious. Affect is not congruent. Intellect average. Insight good, judgment intact to standard questioning. LABORATORY DATA: Reviewed. IMPRESSION: Unchanged from initial note. PLAN: I had a lengthy discussion with the patient about treatment with antidepressants pros and cons, risk, benefit ratio, but after all of this patient is not agreeable to starting antidepressants at least not yet. We will continue to reassess if the symptoms of depression worsened. I will discuss this with her again. ERICA DAVENPORT MD DR: VANDANA/maru JOB#: [id number] / [id number]
--- NOTE | 2017-08-05 07:08 | DS ---
DATE OF DISCHARGE: 08/04/2017 DISCHARGE DIAGNOSES: 1. Status post fall sustaining with left-sided rib fracture. 2. Nondisplaced fracture, left radial head. 3. Left elbow effusion. 4. Chronic pain. 5. Acute on chronic kidney injury. 6. Hypertension. 7. Osteoarthritis. 8. Osteoporosis. 9. 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 10. Hyperthyroidism with multiple thyroid nodules. HOSPITAL COURSE: This is a 76-year-old woman that was admitted by Dr. Gogo Mejia after a fall at home, in which she sustained several rib fractures, a left fracture of the radial head and nose contusion. She was treated for her pain, sling was placed on her arm, she was seen by Physical Therapy. I consulted with Dr. Rivera about her radial head fracture. She also had a slight leukocytosis without evidence of infection. She did receive IV fluids. 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 Because of her weakness, it was decided to send her to the swing bed for rehab and she was discharged on ____. STEVE DURAN DO DR: MARIA DE JESUS/maru JOB#: [id number] / [id number]
[2017-08-05] MEDS ORDERED: NITROFURANTOIN MONOHYD/M-CRYST 100 MG CAPSULE. PO SCH (09:00)
== END 2017-08-04 00:20 | disposition swing bed (61) | DRG 184 ==
LOC: ER 09:44 → 1 SOUTH 11:30
PROVIDERS: ADMIT Internal Medicine; ATTEND Internal Medicine
DX: S22.42XA Multiple fractures of ribs, left side, initial encounter for closed fracture (principal); N17.9 Acute kidney failure, unspecified; F33.9 Major depressive disorder, recurrent, unspecified; E05.20 Thyrotoxicosis with toxic multinodular goiter without thyrotoxic crisis or storm; E78.5 Hyperlipidemia, unspecified; D72.829 Elevated white blood cell count, unspecified; S00.33XA Contusion of nose, initial encounter; G89.29 Other chronic pain; J98.11 Atelectasis; I12.9 Hypertensive chronic kidney disease with stage 1 through stage 4 chronic kidney disease, or unspecified chronic kidney disease; S52.125A Nondisplaced fracture of head of left radius, initial encounter for closed fracture; I25.10 Atherosclerotic heart disease of native coronary artery without angina pectoris; I70.0 Atherosclerosis of aorta; K44.9 Diaphragmatic hernia without obstruction or gangrene; K59.00 Constipation, unspecified; M11.20 Other chondrocalcinosis, unspecified site; M19.90 Unspecified osteoarthritis, unspecified site; M21.70 Unequal limb length (acquired), unspecified site; M81.0 Age-related osteoporosis without current pathological fracture; N18.9 Chronic kidney disease, unspecified; Z96.659 Presence of unspecified artificial knee joint; W01.0XXA Fall on same level from slipping, tripping and stumbling without subsequent striking against object, initial encounter; Y93.01 Activity, walking, marching and hiking; Z79.01 Long term (current) use of anticoagulants; Z90.49 Acquired absence of other specified parts of digestive tract; Z90.710 Acquired absence of both cervix and uterus; Z91.81 History of falling; Z98.41 Cataract extraction status, right eye; Z98.42 Cataract extraction status, left eye; Z88.8 Allergy status to other drugs, medicaments and biological substances; Y92.090 Kitchen in other non-institutional residence as the place of occurrence of the external cause; Y99.8 Other external cause status; Z86.718 Personal history of other venous thrombosis and embolism; Z87.81 Personal history of (healed) traumatic fracture
CPT/HCPCS: 36415; 70450; 71250; 73080; 73110; 74176; 76536; 80048; 80053; 81001; 82550; 83036; 83690; 83735; 84436; 84439; 84443; 84480; 85025; 85027; 85610; 85730; 86376; 93005; 96374; 96376; G0238; J0360; J1170; J2270; J2405; 97110; 97116; 97530; 97535; 99285-25; J7030

== ENCOUNTER 2017-08-03 13:30 | Inpatient (IN) | payer MEDICARE ==
[~2017-08-03] VITALS: Ht 157.5 cm; Wt 83.1 kg
[~2017-08-03 13:30] MED LIST changes: +ACET-704 PO; +ASCO10002 PO; +CELE-20 PO; +HYDR12.58 PO; +MULT-650 PO; +NITR50CA PO; +OMEP20TA63 PO; +VALS320T9 PO; +WARF1TAB7 PO
[2017-08-04] MEDS ORDERED: ACET-704 PO (00:37)
[2017-08-04] MEDS ORDERED: METO100T2 PO (00:37)
[2017-08-04] MEDS ORDERED: HYDR-2867 PO (00:37)
[2017-08-04] MEDS ORDERED: POLY17PO5 PO (00:37)
[2017-08-04] MEDS ORDERED: PANT40TA3 PO (00:37)
[2017-08-04] MEDS ORDERED: DOCU-109 PO (00:37)
[2017-08-04] MEDS ORDERED: LIDO700A39 TP (00:37)
[2017-08-04] MEDS ORDERED: NYST15CR TP (00:37)
[2017-08-04] MEDS ORDERED: NITR100C62 PO (00:37)
[2017-08-04] MEDS ORDERED: BISA10SU2 RC (00:37)
[2017-08-04] MEDS ORDERED: ONDA4TAB10 PO (00:37)
[2017-08-04] MEDS ORDERED: OXYC5TAB88 PO (00:37)
[2017-08-04] MEDS ORDERED: BACI1PAC TP (00:38)
[2017-08-04] MEDS ORDERED: hydrALAZINE 10 MG TABLET PO PRN (02:00)
[2017-08-04] MEDS ORDERED: BISACODYL 10 MG SUPP.RECT RC PRN (02:00)
[2017-08-04] MEDS ORDERED: ACETAMINOPHEN/CODEINE 300/30MG TABLET PO PRN (02:00)
[2017-08-04] MEDS ORDERED: BACITRACIN TOPICAL OINT 28GM TUBE. TP PRN (02:15)
[2017-08-04] MEDS ORDERED: oxyCODONE IR 5 MG TABLET ONE (02:26)
[2017-08-04] MEDS: oxyCODONE IR 5 MG TABLET PO PRN ×2 (02:38→19:13)
[2017-08-04 06:11] VITALS: BP 190/71
[2017-08-04] MEDS ORDERED: CELECOXIB 200 MG CAPSULE ONE (08:21)
[2017-08-04] MEDS ORDERED: MULTIVITAMIN with MINERAL TABLET. ONE (08:21)
[2017-08-04] MEDS ORDERED: ASCORBIC ACID 500 MG TABLET ONE (08:21)
[2017-08-04] MEDS ORDERED: PANTOPRAZOLE 40 MG TABLET. PO ONE (08:21)
[2017-08-04] MEDS ORDERED: METOPROLOL TART IMMED RELEASE 50 MG TABLET ONE (08:21)
[2017-08-04] MEDS ORDERED: POLYETHYLENE GLYCOL 3350 17 GM PACKET. ONE (08:22)
[2017-08-04] MEDS ORDERED: LIDOCAINE (700MG/PATCH) PATCH. ONE (08:22)
[2017-08-04] MEDS ORDERED: DOCUSATE SODIUM 100 MG CAPSULE PO ONE (08:22)
[2017-08-04] MEDS ORDERED: NITROFURANTOIN MACROCRYSTAL 50 MG PO SCH (09:00)
[2017-08-04] MEDS ORDERED: NYSTATIN 100,000 UNIT/GM TOPICAL CREAM 15GM TUBE. TP SCH (09:00)
[2017-08-04] MEDS ORDERED: NITROFURANTOIN MONOHYD/M-CRYST 100 MG CAPSULE. PO SCH (09:00)
[2017-08-04] MEDS ORDERED: OMEPRAZOLE MAGNESIUM PO SCH (09:00)
[2017-08-04] MEDS: NYSTATIN TOPICAL POWDER 30GM BOTTLE. TP SCH ×2 (09:00→20:35)
[2017-08-04] MEDS ORDERED: BACITRACIN ZINC TOPICAL OINT PACKET. TP PRN (09:15)
[2017-08-04] MEDS: PANTOPRAZOLE 40 MG TABLET. PO SCH (09:35)
[2017-08-04] MEDS: ASCORBIC ACID 500 MG TABLET PO SCH (09:36)
[2017-08-04] MEDS: MULTIVITAMIN with MINERAL TABLET. PO SCH (09:36)
[2017-08-04] MEDS: CELECOXIB 200 MG CAPSULE PO SCH ×2 (09:37→20:31)
[2017-08-04] MEDS: METOPROLOL TART IMMED RELEASE 50 MG TABLET PO SCH ×2 (09:37→20:30)
[2017-08-04] MEDS: DOCUSATE SODIUM 100 MG CAPSULE PO SCH ×2 (09:37→20:31)
[2017-08-04] MEDS: POLYETHYLENE GLYCOL 3350 17 GM PACKET. PO SCH (09:38)
[2017-08-04] MEDS: LIDOCAINE (700MG/PATCH) PATCH. TP SCH (09:41)
[2017-08-04] MEDS: hydrALAZINE 25 MG TABLET PO SCH ×2 (14:00→20:31)
[2017-08-04] MEDS ORDERED: METHYL SALICYLATE/MENTHOL TOPICAL OINTMENT 29GM TUBE. TP PRN (14:45)
[2017-08-04 15:10] VITALS: BP 175/59
[2017-08-04] MEDS ORDERED: WARFARIN 1 MG TABLET. PO SCH (16:00)
[2017-08-04 19:36] VITALS: BP 153/53
[2017-08-04] MEDS: SIMVASTATIN 20 MG TABLET PO SCH (20:31)
[2017-08-04] MEDS: ACETAMINOPHEN/CODEINE 300/30MG TABLET PO PRN (21:54)
[2017-08-04 22:07] VITALS: BP 143/81
[2017-08-05 05:09] VITALS: BP 179/66
[2017-08-05] MEDS: oxyCODONE IR 5 MG TABLET PO PRN (05:11)
[2017-08-05] MEDS: hydrALAZINE 25 MG TABLET PO SCH ×3 (05:11→21:00)
[2017-08-05 06:03] VITALS: BP 167/84
[2017-08-05] MEDS: DOCUSATE SODIUM 100 MG CAPSULE PO SCH ×2 (08:14→20:59)
[2017-08-05] MEDS: POLYETHYLENE GLYCOL 3350 17 GM PACKET. PO SCH (08:14)
[2017-08-05] MEDS: ASCORBIC ACID 500 MG TABLET PO SCH (08:15)
[2017-08-05] MEDS: CELECOXIB 200 MG CAPSULE PO SCH ×2 (08:15→20:59)
[2017-08-05] MEDS: ACETAMINOPHEN/CODEINE 300/30MG TABLET PO PRN (08:16)
[2017-08-05] MEDS: METOPROLOL TART IMMED RELEASE 50 MG TABLET PO SCH ×2 (08:18→21:06)
[2017-08-05] MEDS: MULTIVITAMIN with MINERAL TABLET. PO SCH (08:19)
[2017-08-05] MEDS: PANTOPRAZOLE 40 MG TABLET. PO SCH (08:19)
[2017-08-05] MEDS: NITROFURANTOIN MONOHYD/M-CRYST 100 MG CAPSULE. PO SCH (08:20)
[2017-08-05] MEDS: LIDOCAINE (700MG/PATCH) PATCH. TP SCH (08:21)
[2017-08-05] MEDS: NYSTATIN TOPICAL POWDER 30GM BOTTLE. TP SCH ×2 (08:22→21:00)
--- NOTE | 2017-08-05 08:32 | HP ---
ADMIT DATE: 08/04/2017 REASON FOR ADMISSION: To shelter, weakness and difficulty with ADLs. PROBLEMS: 1. Status post fall sustaining left-sided rib fracture. 2. Nondisplaced fracture of the left radial head. 3. Left elbow effusion. 4. Facial contusion. 5. Chronic pain. 6. Acute on chronic kidney injury. 7. Hypertension. 8. Osteoarthritis. 9. Osteoporosis. 10. Lifelong long-term use of anticoagulation. 11. Hyperthyroidism, this is not new. 12. Left thyroid nodules. 13. Supratherapeutic INR. SUBJECTIVE: This is a 76-year-old female who fell sustaining multiple injuries, which has prevented her from doing her activities of daily living and taking care of herself. She is very weak and in a lot of pain because of the rib fractures and the left elbow radial head fracture. Hence, the need for some swing bed. PAST MEDICAL HISTORY: Hypertension, severe osteoarthritis, osteoporosis, multiple deep vein thrombosis. PAST SURGICAL HISTORY: Bilateral cataracts, tonsillectomy, right thyroidectomy, total abdominal hysterectomy, bilateral salpingo-oophorectomy, 3 knee surgeries, appendectomy, right wrist fracture status post open reduction and internal fixation. ALLERGIES: She is allergic to FOSAMAX. MEDICATIONS: Reviewed and are available on the MAR. REVIEW OF SYSTEMS: Positive for pain in the elbow, pain in bilateral knees, weakness, severe left-sided pain secondary to rib fracture. No chest pain, no shortness of breath. No fever, no sore throat. OBJECTIVE: VITAL SIGNS: Blood pressure 153/53, pulse 81, pulse ox 96% on room air. GENERAL: The patient is sitting quietly in the chair outside of the bed. Her color is good. HEENT: Nose with mild swelling and ecchymosis. Throat was clear. NECK: Supple. LUNGS: With a few crackles in the bases, particularly on the left. Certainly, has pain with deep breaths. CARDIOVASCULAR: Regular rhythm and rate. ABDOMEN: Soft, nontender. EXTREMITIES: With some edema around her bilateral knees. SKIN: She has bilateral severe bruising on both knees, particularly on the left, severe bruising on the left elbow, bruising on the left breast, pain to palpation over the ribs and gait is unsteady on her feet. NEUROLOGIC: She is intact. ASSESSMENT: As above. PLAN: Swing bed and monitor INR. SETVE DURAN DO DR: Arabella JOB#: [id number] / [id number]
[2017-08-05] MEDS ORDERED: DEXTROSE 50% 25 GM / 50ML DISP.SYRIN. IV PRN (11:15)
[2017-08-05] MEDS: INSULIN ASPART 300 UNITS/3 ML INSULN.PEN SQ SCH ×3 (11:30→20:44)
[2017-08-05] MEDS: ACETAMINOPHEN 325 MG TABLET PO SCH ×2 (15:41→21:00)
[2017-08-05] MEDS: ACETAMINOPHEN/CODEINE 300/30MG TABLET PO SCH ×2 (15:43→21:00)
[2017-08-05] MEDS: ONDANSETRON ODT 4 MG TAB.RAPDIS PO PRN (17:38)
[2017-08-05 19:35] VITALS: BP 192/77
[2017-08-05] MEDS: SIMVASTATIN 20 MG TABLET PO SCH (21:00)
[2017-08-05 22:48] VITALS: BP 165/69
[2017-08-06 05:08] VITALS: BP 189/82
[2017-08-06] MEDS: ACETAMINOPHEN 325 MG TABLET PO SCH (06:17)
[2017-08-06] MEDS: ACETAMINOPHEN/CODEINE 300/30MG TABLET PO SCH ×3 (06:17→20:06)
[2017-08-06] MEDS: hydrALAZINE 25 MG TABLET PO SCH ×3 (06:22→20:07)
[2017-08-06] MEDS: INSULIN ASPART 300 UNITS/3 ML INSULN.PEN SQ SCH ×4 (07:30→20:09)
[2017-08-06] MEDS: DOCUSATE SODIUM 100 MG CAPSULE PO SCH (08:35)
[2017-08-06] MEDS: MULTIVITAMIN with MINERAL TABLET. PO SCH (08:35)
[2017-08-06] MEDS: CELECOXIB 200 MG CAPSULE PO SCH ×2 (08:35→20:07)
[2017-08-06] MEDS: ASCORBIC ACID 500 MG TABLET PO SCH (08:35)
[2017-08-06] MEDS: PANTOPRAZOLE 40 MG TABLET. PO SCH (08:35)
[2017-08-06] MEDS: METOPROLOL TART IMMED RELEASE 50 MG TABLET PO SCH ×2 (08:36→20:07)
[2017-08-06] MEDS: POLYETHYLENE GLYCOL 3350 17 GM PACKET. PO SCH (08:37)
[2017-08-06] MEDS: LIDOCAINE (700MG/PATCH) PATCH. TP SCH (08:37)
[2017-08-06] MEDS: NYSTATIN TOPICAL POWDER 30GM BOTTLE. TP SCH ×2 (08:37→20:07)
[2017-08-06] MEDS: ACETAMINOPHEN 650 MG/20.3 ML SOLUTION. PO SCH ×2 (14:22→20:06)
[2017-08-06 15:27] VITALS: BP 177/59
[2017-08-06] MEDS: DOCUSATE 100 MG/10 ML SOLUTION. PO SCH (20:06)
[2017-08-06] MEDS: SIMVASTATIN 20 MG TABLET PO SCH (20:07)
[2017-08-07] MEDS: ACETAMINOPHEN/CODEINE 300/30MG TABLET PO SCH ×3 (05:21→20:43)
[2017-08-07] MEDS: ACETAMINOPHEN 650 MG/20.3 ML SOLUTION. PO SCH ×3 (05:22→20:43)
[2017-08-07] MEDS: hydrALAZINE 25 MG TABLET PO SCH (05:22)
[2017-08-07 06:37] VITALS: BP 189/77
[2017-08-07] MEDS: INSULIN ASPART 300 UNITS/3 ML INSULN.PEN SQ SCH ×4 (07:30→21:00)
[2017-08-07] MEDS ORDERED: hydrALAZINE 25 MG TABLET PO ONE (08:30)
[2017-08-07] MEDS: NYSTATIN TOPICAL POWDER 30GM BOTTLE. TP SCH ×2 (09:00→21:00)
[2017-08-07] MEDS: NITROFURANTOIN MONOHYD/M-CRYST 100 MG CAPSULE. PO SCH (09:32)
[2017-08-07] MEDS: CELECOXIB 200 MG CAPSULE PO SCH ×2 (09:32→20:42)
[2017-08-07] MEDS: MULTIVITAMIN with MINERAL TABLET. PO SCH (09:32)
[2017-08-07] MEDS: ASCORBIC ACID 500 MG TABLET PO SCH (09:32)
[2017-08-07] MEDS: PANTOPRAZOLE 40 MG TABLET. PO SCH (09:32)
[2017-08-07] MEDS: METOPROLOL TART IMMED RELEASE 50 MG TABLET PO SCH ×2 (09:33→20:42)
[2017-08-07] MEDS: POLYETHYLENE GLYCOL 3350 17 GM PACKET. PO SCH (09:33)
[2017-08-07] MEDS: DOCUSATE 100 MG/10 ML SOLUTION. PO SCH ×2 (09:33→20:43)
[2017-08-07] MEDS: LIDOCAINE (700MG/PATCH) PATCH. TP SCH (09:34)
[2017-08-07 17:30] VITALS: BP 199/76
[2017-08-07] MEDS: SIMVASTATIN 20 MG TABLET PO SCH (20:42)
[2017-08-08] MEDS: ACETAMINOPHEN 650 MG/20.3 ML SOLUTION. PO SCH ×3 (05:21→21:50)
[2017-08-08] MEDS: ACETAMINOPHEN/CODEINE 300/30MG TABLET PO SCH ×3 (05:21→21:51)
[2017-08-08 05:59] VITALS: BP 134/99
[2017-08-08] MEDS: INSULIN ASPART 300 UNITS/3 ML INSULN.PEN SQ SCH ×4 (07:30→21:00)
[2017-08-08] MEDS: PANTOPRAZOLE 40 MG TABLET. PO SCH (08:10)
[2017-08-08] MEDS: POLYETHYLENE GLYCOL 3350 17 GM PACKET. PO SCH (09:00)
[2017-08-08] MEDS: DOCUSATE 100 MG/10 ML SOLUTION. PO SCH ×2 (09:33→21:50)
[2017-08-08] MEDS: CELECOXIB 200 MG CAPSULE PO SCH ×2 (09:33→21:51)
[2017-08-08] MEDS: MULTIVITAMIN with MINERAL TABLET. PO SCH (09:34)
[2017-08-08] MEDS: NITROFURANTOIN MONOHYD/M-CRYST 100 MG CAPSULE. PO SCH (09:34)
[2017-08-08] MEDS: METOPROLOL TART IMMED RELEASE 50 MG TABLET PO SCH ×2 (09:34→21:51)
[2017-08-08] MEDS: ASCORBIC ACID 500 MG TABLET PO SCH (09:35)
[2017-08-08] MEDS: LIDOCAINE (700MG/PATCH) PATCH. TP SCH (09:36)
[2017-08-08] MEDS: NYSTATIN TOPICAL POWDER 30GM BOTTLE. TP SCH ×2 (09:48→21:00)
[2017-08-08] MEDS ORDERED: WARFARIN 1 MG TABLET. PO ONE (16:00)
[2017-08-08 19:28] VITALS: BP 178/72
[2017-08-08] MEDS: SIMVASTATIN 20 MG TABLET PO SCH (21:50)
[2017-08-09] MEDS: ACETAMINOPHEN/CODEINE 300/30MG TABLET PO SCH (05:52)
[2017-08-09] MEDS: ACETAMINOPHEN 650 MG/20.3 ML SOLUTION. PO SCH (05:52)
[2017-08-09] MEDS: INSULIN ASPART 300 UNITS/3 ML INSULN.PEN SQ SCH ×4 (07:30→20:10)
[2017-08-09] MEDS: ASCORBIC ACID 500 MG TABLET PO SCH (08:14)
[2017-08-09] MEDS: CELECOXIB 200 MG CAPSULE PO SCH ×2 (08:15→20:06)
[2017-08-09] MEDS: DOCUSATE 100 MG/10 ML SOLUTION. PO SCH (08:15)
[2017-08-09] MEDS: METOPROLOL TART IMMED RELEASE 50 MG TABLET PO SCH ×2 (08:15→20:05)
[2017-08-09] MEDS: PANTOPRAZOLE 40 MG TABLET. PO SCH (08:15)
[2017-08-09] MEDS: MULTIVITAMIN with MINERAL TABLET. PO SCH (08:15)
[2017-08-09] MEDS: POLYETHYLENE GLYCOL 3350 17 GM PACKET. PO SCH (08:16)
[2017-08-09] MEDS: LIDOCAINE (700MG/PATCH) PATCH. TP SCH (08:17)
[2017-08-09] MEDS: NYSTATIN TOPICAL POWDER 30GM BOTTLE. TP SCH ×2 (12:07→20:10)
[2017-08-09] MEDS ORDERED: WARFARIN 1 MG TABLET. PO ONE (16:00)
[2017-08-09] MEDS: DOCUSATE SODIUM 100 MG CAPSULE PO SCH (20:05)
[2017-08-09] MEDS: SIMVASTATIN 20 MG TABLET PO SCH (20:06)
[2017-08-09 20:07] VITALS: BP 156/81
[2017-08-09] MEDS: ACETAMINOPHEN/CODEINE 300/30MG TABLET PO PRN (20:07)
[2017-08-09 23:33] VITALS: BP 164/90
[2017-08-10] MEDS: ACETAMINOPHEN 325 MG TABLET PO PRN (01:10)
[2017-08-10 05:06] VITALS: BP 196/81
[2017-08-10] MEDS: ACETAMINOPHEN/CODEINE 300/30MG TABLET PO PRN ×2 (05:38→19:15)
[2017-08-10] MEDS: INSULIN ASPART 300 UNITS/3 ML INSULN.PEN SQ SCH ×4 (07:30→20:20)
[2017-08-10] MEDS: CELECOXIB 200 MG CAPSULE PO SCH ×2 (07:42→20:04)
[2017-08-10] MEDS: DOCUSATE SODIUM 100 MG CAPSULE PO SCH ×2 (07:42→20:04)
[2017-08-10] MEDS: NYSTATIN TOPICAL POWDER 30GM BOTTLE. TP SCH ×2 (07:43→20:07)
[2017-08-10] MEDS: METOPROLOL TART IMMED RELEASE 50 MG TABLET PO SCH ×2 (07:43→20:05)
[2017-08-10] MEDS: POLYETHYLENE GLYCOL 3350 17 GM PACKET. PO SCH (07:44)
[2017-08-10] MEDS: LIDOCAINE (700MG/PATCH) PATCH. TP SCH (07:56)
[2017-08-10] MEDS: PANTOPRAZOLE 40 MG TABLET. PO SCH (07:56)
[2017-08-10] MEDS: ASCORBIC ACID 500 MG TABLET PO SCH (07:57)
[2017-08-10] MEDS: MULTIVITAMIN with MINERAL TABLET. PO SCH (07:57)
[2017-08-10] MEDS ORDERED: WARFARIN 2 MG TABLET. PO ONE (18:00)
[2017-08-10] MEDS: SIMVASTATIN 20 MG TABLET PO SCH (20:05)
[2017-08-10 20:17] VITALS: BP 176/72
[2017-08-10 20:18] VITALS: BP 161/81
[2017-08-11 06:48] VITALS: BP 169/80
[2017-08-11] MEDS: INSULIN ASPART 300 UNITS/3 ML INSULN.PEN SQ SCH ×3 (07:30→16:30)
[2017-08-11] MEDS: PANTOPRAZOLE 40 MG TABLET. PO SCH (07:53)
[2017-08-11] MEDS: NITROFURANTOIN MONOHYD/M-CRYST 100 MG CAPSULE. PO SCH (07:54)
[2017-08-11] MEDS: POLYETHYLENE GLYCOL 3350 17 GM PACKET. PO SCH (07:54)
[2017-08-11] MEDS: MULTIVITAMIN with MINERAL TABLET. PO SCH (07:54)
[2017-08-11] MEDS: DOCUSATE SODIUM 100 MG CAPSULE PO SCH ×2 (07:55→20:39)
[2017-08-11] MEDS: ASCORBIC ACID 500 MG TABLET PO SCH (07:55)
[2017-08-11] MEDS: ACETAMINOPHEN/CODEINE 300/30MG TABLET PO PRN (07:56)
[2017-08-11] MEDS: LIDOCAINE (700MG/PATCH) PATCH. TP SCH (07:56)
[2017-08-11] MEDS: NYSTATIN TOPICAL POWDER 30GM BOTTLE. TP SCH ×2 (07:57→21:00)
[2017-08-11] MEDS: METOPROLOL TART IMMED RELEASE 50 MG TABLET PO SCH ×2 (08:01→20:40)
[2017-08-11] MEDS: CELECOXIB 200 MG CAPSULE PO SCH ×2 (08:01→20:39)
[2017-08-11] MEDS: oxyCODONE IR 5 MG TABLET PO PRN ×2 (11:53→20:41)
[2017-08-11] MEDS: WARFARIN 1 MG TABLET. PO SCH (16:08)
[2017-08-11 20:00] VITALS: BP 172/81
[2017-08-11] MEDS ORDERED: WARFARIN 2 MG TABLET. PO ONE (20:00)
[2017-08-11] MEDS: SIMVASTATIN 20 MG TABLET PO SCH (20:40)
[2017-08-12] MEDS: oxyCODONE IR 5 MG TABLET PO PRN ×2 (02:01→21:00)
[2017-08-12 06:42] VITALS: BP 199/76
[2017-08-12] MEDS: DOCUSATE SODIUM 100 MG CAPSULE PO SCH ×2 (09:00→20:57)
[2017-08-12] MEDS: POLYETHYLENE GLYCOL 3350 17 GM PACKET. PO SCH (09:00)
[2017-08-12 09:09] VITALS: BP 156/75
[2017-08-12] MEDS: LIDOCAINE (700MG/PATCH) PATCH. TP SCH (09:39)
[2017-08-12] MEDS: ASCORBIC ACID 500 MG TABLET PO SCH (09:40)
[2017-08-12] MEDS: METOPROLOL TART IMMED RELEASE 50 MG TABLET PO SCH ×2 (09:41→20:58)
[2017-08-12] MEDS: MULTIVITAMIN with MINERAL TABLET. PO SCH (09:42)
[2017-08-12] MEDS: PANTOPRAZOLE 40 MG TABLET. PO SCH (09:42)
[2017-08-12] MEDS: CELECOXIB 200 MG CAPSULE PO SCH ×2 (09:42→20:57)
[2017-08-12] MEDS: NYSTATIN TOPICAL POWDER 30GM BOTTLE. TP SCH ×2 (09:43→20:58)
[2017-08-12] MEDS: WARFARIN 1 MG TABLET. PO SCH (16:07)
[2017-08-12 20:00] VITALS: BP 214/117
[2017-08-12] MEDS: SIMVASTATIN 20 MG TABLET PO SCH (20:58)
[2017-08-12 22:00] VITALS: BP 160/95
[2017-08-13] MEDS: ONDANSETRON ODT 4 MG TAB.RAPDIS PO PRN (01:40)
[2017-08-13] MEDS: oxyCODONE IR 5 MG TABLET PO PRN ×4 (01:41→19:24)
[2017-08-13 06:00] VITALS: BP 177/73
[2017-08-13] MEDS: ACETAMINOPHEN 325 MG TABLET PO PRN (06:09)
[2017-08-13] MEDS: PANTOPRAZOLE 40 MG TABLET. PO SCH (06:09)
[2017-08-13 08:25] VITALS: BP 148/76
[2017-08-13] MEDS: POLYETHYLENE GLYCOL 3350 17 GM PACKET. PO SCH (09:00)
[2017-08-13] MEDS: DOCUSATE SODIUM 100 MG CAPSULE PO SCH ×2 (09:00→21:04)
[2017-08-13] MEDS: NITROFURANTOIN MONOHYD/M-CRYST 100 MG CAPSULE. PO SCH (09:12)
[2017-08-13] MEDS: ASCORBIC ACID 500 MG TABLET PO SCH (09:13)
[2017-08-13] MEDS: CELECOXIB 200 MG CAPSULE PO SCH ×2 (09:13→21:04)
[2017-08-13] MEDS: METOPROLOL TART IMMED RELEASE 50 MG TABLET PO SCH ×2 (09:13→21:05)
[2017-08-13] MEDS: MULTIVITAMIN with MINERAL TABLET. PO SCH (09:13)
[2017-08-13] MEDS: NYSTATIN TOPICAL POWDER 30GM BOTTLE. TP SCH ×2 (09:14→21:07)
[2017-08-13] MEDS: LIDOCAINE (700MG/PATCH) PATCH. TP SCH (09:14)
[2017-08-13 20:46] VITALS: BP 154/61
[2017-08-13] MEDS: SIMVASTATIN 20 MG TABLET PO SCH (21:04)
[2017-08-14] MEDS: oxyCODONE IR 5 MG TABLET PO PRN ×4 (02:10→21:18)
[2017-08-14 05:30] VITALS: BP 169/72
[2017-08-14] MEDS: PANTOPRAZOLE 40 MG TABLET. PO SCH (08:40)
[2017-08-14] MEDS: ASCORBIC ACID 500 MG TABLET PO SCH (08:40)
[2017-08-14] MEDS: MULTIVITAMIN with MINERAL TABLET. PO SCH (08:40)
[2017-08-14] MEDS: METOPROLOL TART IMMED RELEASE 50 MG TABLET PO SCH ×2 (08:41→21:01)
[2017-08-14] MEDS: DOCUSATE SODIUM 100 MG CAPSULE PO SCH ×2 (08:41→21:01)
[2017-08-14] MEDS: CELECOXIB 200 MG CAPSULE PO SCH ×2 (08:41→21:01)
[2017-08-14] MEDS: LIDOCAINE (700MG/PATCH) PATCH. TP SCH (08:42)
[2017-08-14] MEDS: NYSTATIN TOPICAL POWDER 30GM BOTTLE. TP SCH ×2 (08:44→21:01)
[2017-08-14] MEDS: POLYETHYLENE GLYCOL 3350 17 GM PACKET. PO SCH (08:44)
[2017-08-14 18:13] VITALS: BP 134/71
[2017-08-14] MEDS: SIMVASTATIN 20 MG TABLET PO SCH (21:00)
[2017-08-15] MEDS: ACETAMINOPHEN/CODEINE 300/30MG TABLET PO PRN (02:41)
[2017-08-15 05:23] VITALS: BP 185/77
[2017-08-15] MEDS: PANTOPRAZOLE 40 MG TABLET. PO SCH (07:31)
[2017-08-15] MEDS: POLYETHYLENE GLYCOL 3350 17 GM PACKET. PO SCH (09:00)
[2017-08-15] MEDS: DOCUSATE SODIUM 100 MG CAPSULE PO SCH ×2 (09:00→20:09)
[2017-08-15] MEDS: NYSTATIN TOPICAL POWDER 30GM BOTTLE. TP SCH ×2 (09:28→20:51)
[2017-08-15] MEDS: NITROFURANTOIN MONOHYD/M-CRYST 100 MG CAPSULE. PO SCH (09:28)
[2017-08-15] MEDS: MULTIVITAMIN with MINERAL TABLET. PO SCH (09:28)
[2017-08-15] MEDS: ASCORBIC ACID 500 MG TABLET PO SCH (09:28)
[2017-08-15] MEDS: METOPROLOL TART IMMED RELEASE 50 MG TABLET PO SCH ×2 (09:28→20:09)
[2017-08-15] MEDS: LIDOCAINE (700MG/PATCH) PATCH. TP SCH (09:29)
[2017-08-15] MEDS: CELECOXIB 200 MG CAPSULE PO SCH ×2 (09:29→20:08)
[2017-08-15] MEDS: oxyCODONE IR 5 MG TABLET PO PRN ×2 (11:59→21:32)
[2017-08-15] MEDS ORDERED: WARFARIN 1 MG TABLET. PO ONE (16:00)
[2017-08-15 17:25] VITALS: BP 173/75
[2017-08-15] MEDS: SIMVASTATIN 20 MG TABLET PO SCH (20:09)
[2017-08-16] MEDS: ASCORBIC ACID 500 MG TABLET PO SCH (08:44)
[2017-08-16] MEDS: PANTOPRAZOLE 40 MG TABLET. PO SCH (08:44)
[2017-08-16] MEDS: CELECOXIB 200 MG CAPSULE PO SCH ×2 (08:44→20:48)
[2017-08-16] MEDS: DOCUSATE SODIUM 100 MG CAPSULE PO SCH ×2 (08:44→20:49)
[2017-08-16] MEDS: MULTIVITAMIN with MINERAL TABLET. PO SCH (08:44)
[2017-08-16] MEDS: METOPROLOL TART IMMED RELEASE 50 MG TABLET PO SCH ×2 (08:45→20:49)
[2017-08-16] MEDS: POLYETHYLENE GLYCOL 3350 17 GM PACKET. PO SCH (08:45)
[2017-08-16] MEDS: LIDOCAINE (700MG/PATCH) PATCH. TP SCH (08:46)
[2017-08-16] MEDS: NYSTATIN TOPICAL POWDER 30GM BOTTLE. TP SCH ×2 (08:46→19:45)
[2017-08-16] MEDS: oxyCODONE IR 5 MG TABLET PO PRN ×3 (08:50→20:49)
[2017-08-16 08:53] VITALS: BP 152/68
[2017-08-16] MEDS: WARFARIN 1 MG TABLET. PO SCH (14:38)
[2017-08-16 18:27] VITALS: BP 148/71
[2017-08-16 20:25] VITALS: BP 148/62
[2017-08-16] MEDS: SIMVASTATIN 20 MG TABLET PO SCH (20:49)
[2017-08-16 21:41] VITALS: BP 148/65
[2017-08-17 05:14] VITALS: BP 163/68
[2017-08-17] MEDS: DOCUSATE SODIUM 100 MG CAPSULE PO SCH ×2 (08:08→19:13)
[2017-08-17] MEDS: METOPROLOL TART IMMED RELEASE 50 MG TABLET PO SCH ×2 (08:08→19:10)
[2017-08-17] MEDS: PANTOPRAZOLE 40 MG TABLET. PO SCH (08:08)
[2017-08-17] MEDS: NITROFURANTOIN MONOHYD/M-CRYST 100 MG CAPSULE. PO SCH (08:08)
[2017-08-17] MEDS: CELECOXIB 200 MG CAPSULE PO SCH ×2 (08:08→19:09)
[2017-08-17] MEDS: MULTIVITAMIN with MINERAL TABLET. PO SCH (08:08)
[2017-08-17] MEDS: ASCORBIC ACID 500 MG TABLET PO SCH (08:08)
[2017-08-17] MEDS: LIDOCAINE (700MG/PATCH) PATCH. TP SCH (08:09)
[2017-08-17] MEDS: POLYETHYLENE GLYCOL 3350 17 GM PACKET. PO SCH (08:09)
[2017-08-17] MEDS: NYSTATIN TOPICAL POWDER 30GM BOTTLE. TP SCH ×2 (08:30→19:10)
[2017-08-17 14:04] VITALS: BP 149/79
[2017-08-17] MEDS: WARFARIN 1 MG TABLET. PO SCH (16:25)
[2017-08-17 19:01] VITALS: BP 146/53
[2017-08-17] MEDS: SIMVASTATIN 20 MG TABLET PO SCH (19:10)
[2017-08-17] MEDS: oxyCODONE IR 5 MG TABLET PO PRN (19:15)
[2017-08-18 05:44] VITALS: BP 172/75
[2017-08-18] MEDS: PANTOPRAZOLE 40 MG TABLET. PO SCH (07:59)
[2017-08-18] MEDS: CELECOXIB 200 MG CAPSULE PO SCH ×2 (08:00→19:37)
[2017-08-18] MEDS: DOCUSATE SODIUM 100 MG CAPSULE PO SCH ×2 (08:00→19:37)
[2017-08-18] MEDS: MULTIVITAMIN with MINERAL TABLET. PO SCH (08:02)
[2017-08-18] MEDS: LIDOCAINE (700MG/PATCH) PATCH. TP SCH (08:02)
[2017-08-18] MEDS: ASCORBIC ACID 500 MG TABLET PO SCH (08:02)
[2017-08-18] MEDS: METOPROLOL TART IMMED RELEASE 50 MG TABLET PO SCH ×2 (08:03→22:12)
[2017-08-18] MEDS: NYSTATIN TOPICAL POWDER 30GM BOTTLE. TP SCH ×2 (08:04→19:37)
[2017-08-18] MEDS: POLYETHYLENE GLYCOL 3350 17 GM PACKET. PO SCH (08:04)
[2017-08-18 09:24] VITALS: BP 147/70
[2017-08-18] MEDS: oxyCODONE IR 5 MG TABLET PO PRN ×3 (11:13→19:37)
[2017-08-18 15:06] VITALS: BP 149/66
[2017-08-18] MEDS: WARFARIN 1 MG TABLET. PO SCH (15:33)
[2017-08-18 19:13] VITALS: BP 123/55
[2017-08-18] MEDS: SIMVASTATIN 20 MG TABLET PO SCH (19:37)
[2017-08-18 22:12] VITALS: BP 122/56
[2017-08-19] MEDS: PANTOPRAZOLE 40 MG TABLET. PO SCH (08:19)
[2017-08-19] MEDS: CELECOXIB 200 MG CAPSULE PO SCH ×2 (08:21→21:01)
[2017-08-19] MEDS: DOCUSATE SODIUM 100 MG CAPSULE PO SCH ×3 (08:21→21:01)
[2017-08-19] MEDS: NITROFURANTOIN MONOHYD/M-CRYST 100 MG CAPSULE. PO SCH (08:22)
[2017-08-19] MEDS: METOPROLOL TART IMMED RELEASE 50 MG TABLET PO SCH ×2 (08:22→21:02)
[2017-08-19] MEDS: MULTIVITAMIN with MINERAL TABLET. PO SCH (08:22)
[2017-08-19] MEDS: LIDOCAINE (700MG/PATCH) PATCH. TP SCH (08:23)
[2017-08-19] MEDS: ASCORBIC ACID 500 MG TABLET PO SCH (08:23)
[2017-08-19] MEDS: oxyCODONE IR 5 MG TABLET PO PRN ×2 (08:23→21:04)
[2017-08-19] MEDS: NYSTATIN TOPICAL POWDER 30GM BOTTLE. TP SCH ×2 (08:25→21:00)
[2017-08-19] MEDS: POLYETHYLENE GLYCOL 3350 17 GM PACKET. PO SCH (08:25)
[2017-08-19 14:15] VITALS: BP 160/71
[2017-08-19] MEDS: WARFARIN 1 MG TABLET. PO SCH (16:20)
[2017-08-19 18:25] VITALS: BP 137/77
[2017-08-19] MEDS: SIMVASTATIN 20 MG TABLET PO SCH (21:02)
[2017-08-20 05:00] VITALS: BP 171/75
[2017-08-20] MEDS: PANTOPRAZOLE 40 MG TABLET. PO SCH (06:28)
[2017-08-20] MEDS: POLYETHYLENE GLYCOL 3350 17 GM PACKET. PO SCH (09:00)
[2017-08-20] MEDS: NYSTATIN TOPICAL POWDER 30GM BOTTLE. TP SCH ×2 (09:00→20:18)
[2017-08-20] MEDS: CELECOXIB 200 MG CAPSULE PO SCH ×2 (09:56→20:16)
[2017-08-20] MEDS: DOCUSATE SODIUM 100 MG CAPSULE PO SCH ×2 (09:56→20:17)
[2017-08-20] MEDS: MULTIVITAMIN with MINERAL TABLET. PO SCH (09:56)
[2017-08-20] MEDS: ASCORBIC ACID 500 MG TABLET PO SCH (09:56)
[2017-08-20] MEDS: METOPROLOL TART IMMED RELEASE 50 MG TABLET PO SCH ×2 (09:57→20:17)
[2017-08-20] MEDS: LIDOCAINE (700MG/PATCH) PATCH. TP SCH (09:59)
[2017-08-20] MEDS: WARFARIN 1 MG TABLET. PO SCH (14:18)
[2017-08-20 19:37] VITALS: BP 146/68
[2017-08-20] MEDS: ACETAMINOPHEN/CODEINE 300/30MG TABLET PO PRN (20:16)
[2017-08-20] MEDS: SIMVASTATIN 20 MG TABLET PO SCH (20:17)
[2017-08-21 05:51] VITALS: BP 157/74
[2017-08-21] MEDS: PANTOPRAZOLE 40 MG TABLET. PO SCH (08:15)
[2017-08-21] MEDS: CELECOXIB 200 MG CAPSULE PO SCH ×2 (08:15→20:10)
[2017-08-21] MEDS: DOCUSATE SODIUM 100 MG CAPSULE PO SCH ×2 (08:15→20:10)
[2017-08-21] MEDS: NITROFURANTOIN MONOHYD/M-CRYST 100 MG CAPSULE. PO SCH (08:16)
[2017-08-21] MEDS: MULTIVITAMIN with MINERAL TABLET. PO SCH (08:16)
[2017-08-21] MEDS: METOPROLOL TART IMMED RELEASE 50 MG TABLET PO SCH ×2 (08:16→20:10)
[2017-08-21] MEDS: ASCORBIC ACID 500 MG TABLET PO SCH (08:17)
[2017-08-21] MEDS: LIDOCAINE (700MG/PATCH) PATCH. TP SCH (08:18)
[2017-08-21] MEDS: NYSTATIN TOPICAL POWDER 30GM BOTTLE. TP SCH ×2 (08:18→20:10)
[2017-08-21] MEDS: POLYETHYLENE GLYCOL 3350 17 GM PACKET. PO SCH (08:19)
[2017-08-21] MEDS: WARFARIN 1 MG TABLET. PO SCH (17:48)
[2017-08-21] MEDS: SIMVASTATIN 20 MG TABLET PO SCH (20:10)
[2017-08-21] MEDS: ACETAMINOPHEN/CODEINE 300/30MG TABLET PO PRN (20:10)
[2017-08-22 05:49] VITALS: BP 158/70
[2017-08-22] MEDS: PANTOPRAZOLE 40 MG TABLET. PO SCH (06:04)
[2017-08-22 08:45] VITALS: BP 160/69
[2017-08-22] MEDS: POLYETHYLENE GLYCOL 3350 17 GM PACKET. PO SCH (09:00)
[2017-08-22] MEDS: MULTIVITAMIN with MINERAL TABLET. PO SCH (09:07)
[2017-08-22] MEDS: ASCORBIC ACID 500 MG TABLET PO SCH (09:07)
[2017-08-22] MEDS: METOPROLOL TART IMMED RELEASE 50 MG TABLET PO SCH ×2 (09:07→21:35)
[2017-08-22] MEDS: DOCUSATE SODIUM 100 MG CAPSULE PO SCH ×2 (09:08→21:36)
[2017-08-22] MEDS: CELECOXIB 200 MG CAPSULE PO SCH ×2 (09:08→21:35)
[2017-08-22] MEDS: LIDOCAINE (700MG/PATCH) PATCH. TP SCH (09:09)
[2017-08-22] MEDS: NYSTATIN TOPICAL POWDER 30GM BOTTLE. TP SCH ×2 (09:10→21:39)
[2017-08-22] MEDS: ACETAMINOPHEN/CODEINE 300/30MG TABLET PO PRN ×2 (09:18→21:36)
[2017-08-22] MEDS: WARFARIN 1 MG TABLET. PO SCH (16:59)
[2017-08-22 17:45] VITALS: BP 153/67
[2017-08-22] MEDS: SIMVASTATIN 20 MG TABLET PO SCH (21:35)
[2017-08-23 05:43] VITALS: BP 155/61
[2017-08-23] MEDS: POLYETHYLENE GLYCOL 3350 17 GM PACKET. PO SCH (09:00)
[2017-08-23] MEDS: DOCUSATE SODIUM 100 MG CAPSULE PO SCH ×2 (09:29→20:26)
[2017-08-23] MEDS: MULTIVITAMIN with MINERAL TABLET. PO SCH (09:29)
[2017-08-23] MEDS: METOPROLOL TART IMMED RELEASE 50 MG TABLET PO SCH ×2 (09:30→20:27)
[2017-08-23] MEDS: CELECOXIB 200 MG CAPSULE PO SCH ×2 (09:30→20:26)
[2017-08-23] MEDS: ASCORBIC ACID 500 MG TABLET PO SCH (09:30)
[2017-08-23] MEDS: PANTOPRAZOLE 40 MG TABLET. PO SCH (09:30)
[2017-08-23] MEDS: NYSTATIN TOPICAL POWDER 30GM BOTTLE. TP SCH ×2 (09:33→20:33)
[2017-08-23] MEDS: LIDOCAINE (700MG/PATCH) PATCH. TP SCH (09:33)
[2017-08-23] MEDS: NITROFURANTOIN MONOHYD/M-CRYST 100 MG CAPSULE. PO SCH (10:24)
[2017-08-23] MEDS: WARFARIN 1 MG TABLET. PO SCH (17:02)
[2017-08-23 17:58] VITALS: BP 146/76
[2017-08-23] MEDS: SIMVASTATIN 20 MG TABLET PO SCH (20:27)
[2017-08-23] MEDS: ACETAMINOPHEN/CODEINE 300/30MG TABLET PO PRN (20:27)
[2017-08-24 05:52] VITALS: BP 159/69
[2017-08-24] MEDS: DOCUSATE SODIUM 100 MG CAPSULE PO SCH (08:02)
[2017-08-24] MEDS: PANTOPRAZOLE 40 MG TABLET. PO SCH (08:02)
[2017-08-24] MEDS: CELECOXIB 200 MG CAPSULE PO SCH (08:02)
[2017-08-24 08:03] VITALS: BP 159/69
[2017-08-24] MEDS: MULTIVITAMIN with MINERAL TABLET. PO SCH (08:03)
[2017-08-24] MEDS: METOPROLOL TART IMMED RELEASE 50 MG TABLET PO SCH (08:03)
[2017-08-24] MEDS: ASCORBIC ACID 500 MG TABLET PO SCH (08:03)
[2017-08-24] MEDS: POLYETHYLENE GLYCOL 3350 17 GM PACKET. PO SCH (08:04)
[2017-08-24] MEDS: NYSTATIN TOPICAL POWDER 30GM BOTTLE. TP SCH (08:05)
[2017-08-24] MEDS: LIDOCAINE (700MG/PATCH) PATCH. TP SCH (08:05)
--- NOTE | 2017-08-24 12:48 | DS ---
DATE OF DISCHARGE: HOSPITAL COURSE: This is a 76-year-old female patient who was admitted originally on 07/29/2017 after she sustained multiple rib fractures and nondisplaced left radial head fracture. She has had multiple problems with pain management and eventually, she was discharged to the swing bed and did very well. Her pain is much better controlled now. She has been up and about, ambulating without assistance or assistive devices. It was felt that the patient is safe to be discharged home with home health. On questioning her today, she denied any complaint. The nursing staff did not voice any concerns that she has uneventful night. PHYSICAL EXAMINATION: GENERAL: When I examined her, she looked pale, but no jaundice, cyanosis, or thyromegaly. No jugular venous distension. No limb edema. VITAL SIGNS: Her heart rate was 77, blood pressure 159/69, temperature was 98.7, respiratory rate 20, and oxygen saturation was 96% on room air. HEAD, EYES, EARS, NOSE AND THROAT: Showed normocephalic, atraumatic. NECK: Supple. HEART: Showed normal first and second heart sounds. No gallop, rub or murmur. CHEST: Clear to auscultation. No crepitation or rhonchi. ABDOMEN: Distended, soft, nontender. No guarding or rigidity. No organomegaly. Hernial orifices intact. Bowel sounds normal. NEUROLOGIC: She is awake, alert, responding appropriately, appears intact. EXTREMITIES: She moves extremities without difficulty. She ambulates with a walker. LABORATORY DATA: Her most recent lab work showed prothrombin time of 24.5, INR of 2.4. Her most recent lab work showed a white cell count of 10,000, hemoglobin 12, hematocrit 36, MCV 90 and platelet count of 259,000. Her most recent chemistry showed serum sodium 138, potassium 3.9, chloride 105, bicarbonate 21, anion gap of 12, BUN 31, creatinine 1.1, estimated GFR was 48 mL per minute. Her glucose was 82, calcium was 8.3, magnesium was 1.9. Total bilirubin, AST, ALT, alkaline phosphatase were normal. Total protein 6.2, albumin 2.6. DISCHARGE MEDICATIONS: She was discharged home to continue on following medications: acetaminophen with codeine 1 tablet 3 times a day, acetaminophen with ascorbic acid 1000 mg daily, bacitracin 1 packet topically daily p.r.n. for her wounds and skin tears, bisacodyl 10 mg suppository rectally daily. She is on Celebrex 200 mg twice a day, Colace 100 mg p.o. b.i.d., Lidoderm patch 1 patch topically on for 12 hours and off for 12 hours, metoprolol tartrate 100 mg twice a day, multivitamin with mineral 1 tablet once a day, nitrofurantoin 100 mg every other day, nystatin cream applied topically twice a day, omeprazole 20 mg 2 tablets daily, ondansetron for Zofran 4 mg every 6 hours, oxycodone 5 mg every 4 hours as needed, Protonix 40 mg daily, polyethylene glycol 17 grams daily, simvastatin 20 mg at bedtime, and Warfarin alternating 1.5 mg every other day. FINAL DISCHARGE DIAGNOSES: 1. Fall, sustaining left side, multiple left-sided rib fractures. 2. Nondisplaced fracture of the left radial head. 3. Left elbow effusion. 4. 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 The patient will be discharged home with home health to monitor her PT/INR. ALEX SANCHEZ MD DR: PITA/maru JOB#: [id number] / [id number]
== END 2017-08-24 13:15 | disposition home health service (06) | DRG 206 ==
LOC: 1 SOUTH 08-04 00:52 → LND 08-06 17:00
PROVIDERS: ADMIT Family Medicine; ATTEND Family Medicine
DX: S22.32XA Fracture of one rib, left side, initial encounter for closed fracture (principal); N17.9 Acute kidney failure, unspecified; E04.1 Nontoxic single thyroid nodule; S52.125A Nondisplaced fracture of head of left radius, initial encounter for closed fracture; G89.29 Other chronic pain; E05.20 Thyrotoxicosis with toxic multinodular goiter without thyrotoxic crisis or storm; I12.9 Hypertensive chronic kidney disease with stage 1 through stage 4 chronic kidney disease, or unspecified chronic kidney disease; M19.90 Unspecified osteoarthritis, unspecified site; M81.0 Age-related osteoporosis without current pathological fracture; N18.9 Chronic kidney disease, unspecified; R79.1 Abnormal coagulation profile; M25.422 Effusion, left elbow; Z79.01 Long term (current) use of anticoagulants; Z86.711 Personal history of pulmonary embolism; Z86.718 Personal history of other venous thrombosis and embolism; Z90.710 Acquired absence of both cervix and uterus; Z98.42 Cataract extraction status, left eye; Z98.41 Cataract extraction status, right eye; Z90.49 Acquired absence of other specified parts of digestive tract; Z90.722 Acquired absence of ovaries, bilateral; Z87.81 Personal history of (healed) traumatic fracture; Z88.8 Allergy status to other drugs, medicaments and biological substances; W18.30XA Fall on same level, unspecified, initial encounter; Y93.89 Activity, other specified; Y92.89 Other specified places as the place of occurrence of the external cause; Y99.8 Other external cause status
CPT/HCPCS: 36415; 82947; 85610; J1815; Q0162; 97110; 97116; 97530; 97535

== ENCOUNTER → 2017-08-31 | Outpatient (CLI) | payer MEDICARE ==
[2017-08-24 08:03] VITALS: BP 159/69
[~2017-08-31] MED LIST changes: +BACI1PAC TP; +BISA10SU2 RC; +DOCU-109 PO; +HYDR-2867 PO; +LIDO700A39 TP; +METO100T2 PO; +NITR100C62 PO; +NYST15CR TP; +ONDA4TAB10 PO; +OXYC5TAB88 PO; +PANT40TA3 PO; +POLY17PO5 PO
--- NOTE | 2017-08-31 11:19 | RAD ---
Left knee, 3 views, 08/31/2017: History: Pain after a fall There is extensive degenerative change at the knee joint with marginal spurring and underlying chondrocalcinosis. There is considerable irregularity and sclerosis of the articular surfaces of the medial compartment of the knee joint. There is moderate patellofemoral spurring. No acute fracture or dislocation is identified. There is a suggestion of a small knee joint effusion. Arterial calcifications are present. IMPRESSION: 1. Severe degenerative change with chondrocalcinosis. 2. No acute bony abnormality is detected.
--- NOTE | 2017-08-31 11:29 | RAD ---
Left elbow, 3 views, 08/31/2017: History: Pain after a fall Comparison is made to a study from 07/28/2017. There is mild deformity of the radial head due to the patient's known radial head fracture evident on the previous study. There is a calcific density along the anterior aspect of the elbow joint compatible with a small bony fragment/loose body in the elbow joint. In retrospect this was also present on the previous study. There is mild cortical irregularity with minimal bony fragmentation along the inferior aspect of the lateral humeral epicondyle. This was not evident on the previous study, however, comparison is compromised by differences in patient rotation. There is an ongoing elbow joint effusion. There is spurring at the elbow joint. IMPRESSION: 1. Stable radial head fracture. 2. Mild cortical deformity along the inferior aspect of lateral humeral epicondyle compatible with an old fracture, likely the source of the bone fragment evident in the anterior aspect of the elbow joint. 3. Ongoing elbow joint effusion.
== END | disposition home or self-care (01) ==
LOC: LAB 10:18
PROVIDERS: ATTEND Physician Assistant
DX: S42.402D Unspecified fracture of lower end of left humerus, subsequent encounter for fracture with routine healing (principal); M17.12 Unilateral primary osteoarthritis, left knee; M11.262 Other chondrocalcinosis, left knee; M25.822 Other specified joint disorders, left elbow; M76.892 Other specified enthesopathies of left lower limb, excluding foot; I70.202 Unspecified atherosclerosis of native arteries of extremities, left leg; X58.XXXD Exposure to other specified factors, subsequent encounter; Z79.01 Long term (current) use of anticoagulants
CPT/HCPCS: 73080; 73562

== ENCOUNTER → 2018-11-22 | Outpatient (CLI) | payer MEDICARE ==
[~2018-11-22] MED LIST changes: -METO100T2 PO; +METO100T7 PO; +VALS320T13 PO; -VALS320T9 PO; +WARF1TAB69 PO; -WARF1TAB7 PO
--- NOTE | 2018-11-23 07:54 | RAD ---
Chest, 2 views, 11/22/2018: HISTORY: Cough The heart size is normal. There is calcific plaquing of the aorta. The pulmonary vascularity is normal. No pulmonary infiltrate is seen. There is no evidence of pleural fluid. Mild scattered degenerative changes are present in the spine. There is old healed rib fracture laterally on the left. IMPRESSION: No acute cardiopulmonary abnormality is detected. Electronically signed by: Thomas Lai MD (11/23/2018 7:51 AM) [facility]
== END | disposition home or self-care (01) ==
LOC: PMG 09:48
PROVIDERS: ATTEND Physician Assistant
DX: R05 Cough (principal); M47.894 Other spondylosis, thoracic region
CPT/HCPCS: 71046